=== PATIENT | male | born 1950 | race Caucasian/White ===

== ENCOUNTER 2024-11-16 10:55 | Inpatient (IN) | payer MEDICARE, SELFPAY ==
[2024-11-16] VITALS (16 sets, daily range): BP systolic 151–199; BP diastolic 64–79; PULSE 53–71; RESP 15–26; TEMP 35.8–36.4; O2SAT 94–99; BMI 21.9
--- NOTE | 2024-11-16 11:45 | DI.CT.S_ITS ---
PROCEDURE: CT CERVICAL SPINE WO CON INDICATIONS: c spine pain, multiple falls TECHNIQUE: Noncontrast 3 mm thick sections acquired from the skull base to the T4 level. Sagittal and coronal reformats were then constructed. For radiation dose reduction, the following was used: automated exposure control, adjustment of mA and/or kV according to patient size. COMPARISON: None. FINDINGS: Image quality: Excellent. Bones: No fractures or dislocations. Cervical spondylosis. Findings include severe bilateral bony foraminal narrowing at C3-C4 as well as bilateral foraminal narrowing at C7-T1 and T1-T2. There is multilevel facet arthropathy. There is a degree of canal stenosis at C3-C4. Visualized superior ribs are intact. Soft tissues: Prevertebral soft tissues are normal in thickness. No paravertebral hematomas. No apical pneumothoraces. IMPRESSION: No displaced fracture or traumatic subluxation. Cervical spondylosis Dictated by: Cristian Prakash M.D. on 11/16/2024 at 13:24 Approved by: Cristian Prakash M.D. on 11/16/2024 at 13:27
--- NOTE | 2024-11-16 11:45 | DI.CT.S_ITS ---
PROCEDURE: CT HEAD/BRAIN WO CON INDICATIONS: c spine pain, hit head, multiple falls TECHNIQUE: Noncontrast 4.5 mm thick angled axial sections acquired from the foramen magnum to the vertex, with coronal and sagittal reformats. For radiation dose reduction, the following was used: automated exposure control, adjustment of mA and/or kV according to patient size. COMPARISON: None. FINDINGS: Image quality: Diagnostic. CSF spaces: Basal cisterns are patent small left subdural hygroma without midline shift. No acute subdural hematoma. The ventricles are symmetric in size and shape. Brain: No intracranial bleeds or masses. There is cerebral volume loss for age, with resultant ventricular and sulcal prominence. There are periventricular and deep white matter chronic small vessel ischemic changes. Old bilateral basal ganglia lacunar infarctions. Moderate small vessel ischemic change. There is intracranial internal carotid artery atherosclerosis. Skull and face: Remote right temporal and parietal owen hole procedure. Remote extracranial circulation embolization on the right, possibly the middle meningeal artery. Calvarium and visualized facial bones appear intact, without suspicious lesions. Sinuses: Visualized sinuses and mastoids are clear. IMPRESSION: 1. No acute intracranial process. 2. Small left subdural hygroma. 3. Age-related volume loss, small vessel ischemic change, old bilateral lacunar infarcts. 4. Remote right-sided owen hole procedure and extracranial embolization, likely the middle meningeal artery distribution. Dictated by: Cristian Prakash M.D. on 11/16/2024 at 13:21 Approved by: Cristian Prakash M.D. on 11/16/2024 at 13:24
--- NOTE | 2024-11-16 11:46 | DI.RAD.S_ITS ---
PROCEDURE: XR CHEST 1V INDICATIONS: chest pain TECHNIQUE: One view of the chest was acquired. COMPARISON: None. FINDINGS: Surgical changes and devices: None. Lungs and pleura: Lungs are clear. No pleural effusions or pneumothorax. Mediastinum: Mediastinal contours appear normal. Heart size is normal. Bones and chest wall: No suspicious bony lesions. Overlying soft tissues appear unremarkable. IMPRESSION: No acute cardiopulmonary abnormality is seen. Dictated by: Cristian Prakash M.D. on 11/16/2024 at 13:14 Approved by: Cristian Prakash M.D. on 11/16/2024 at 13:15
--- NOTE | 2024-11-16 13:08 | DI.CT.S_ITS ---
PROCEDURE: CT FACIAL BONES WO CON INDICATIONS: fall TECHNIQUE: Noncontrast 2.5 mm thick axial images acquired from the mandible through the frontal sinuses, with coronal and sagittal reformatting. For radiation dose reduction, the following was used: automated exposure control, adjustment of mA and/or kV according to patient size. COMPARISON: None. FINDINGS: Image quality: Excellent. Bones and teeth: Orbital holly are intact. Sinus holyl show no fracture or deformity. Nasal bones and septum are intact. Visualized portions of the mandible demonstrate no fractures or subluxation. Zygomatic arches are intact. Pterygoid plates are intact. Visualized portions of the skull base and auditory canals are intact. Sinuses: Paranasal sinuses are aerated, without air-fluid levels. There is mild mucosal thickening of the right maxillary sinus and a left maxillary sinus mucous retention cyst. Mastoid air cells are aerated. Soft tissues: No edema, masses, or fluid collections. No enlarged lymph nodes. No soft tissue lacerations or debris. Vascular: Visualized vascular structures appear normal in the absence of contrast. Bony vascular foramina and canals are intact. IMPRESSION: No displaced facial bone fractures or mandibular fractures. Dictated by: Cristian Prakash M.D. on 11/16/2024 at 14:36 Approved by: Cristian Prakash M.D. on 11/16/2024 at 14:40
--- NOTE | 2024-11-16 13:08 | DI.CT.S_ITS ---
PROCEDURE: CT TRAUMA CHEST ABDOMEN PELVIS INDICATIONS: fell TECHNIQUE: After the administration of intravenous contrast, 5 mm thick sections acquired from the lung apices to the symphysis. 2.5 mm thick coronal and sagittal reformats were acquired. Additional 7 mm thick coronal maximum intensity projection (MIP) reformats acquired through the lungs. Optional 10-minute delayed imaging may be performed from the kidneys to the bladder. For radiation dose reduction, the following was used: automated exposure control, adjustment of mA and/or kV according to patient size. COMPARISON: None. FINDINGS: Image quality: Diagnostic. CHEST: Lower Neck: No enlarged lymph nodes. Thyroid: No thyroid nodules which require sonographic evaluation. Axillae: No enlarged lymph nodes. Chest Wall: No subcutaneous gas. Lungs and Pleura: No pulmonary contusions or lacerations. No acute airspace opacities. No pneumothorax or hemothorax. Mediastinum: No mediastinal hematomas. Heart size is normal. No pericardial effusion. Aneurysmal dilatation of the ascending aorta, measuring 4.4 cm at the level of the right main pulmonary artery. Classic three-vessel arch anatomy. Great vessel origins are widely patent. No mediastinal or hilar adenopathy. Esophagus is normal in caliber. No hiatal hernia. ABDOMEN: Liver: No lacerations. Gallbladder: No radiopaque gallstones or wall thickening. Biliary ducts: No biliary dilation. Pancreas: Homogenous enhancement. Spleen: Homogenous enhancement without laceration or hematoma. Adrenal Glands: Symmetric enhancement. Kidneys and Ureters: Small, shrunken right kidney. 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 Symmetric enhancement. No hydronephrosis. No solid mass. No complex renal cystic lesion which requires follow up. Stomach and Bowel: Normal colonic caliber, without significant wall thickening. Peritoneum: No abnormal intraperitoneal fluid. No free air. Ventral Wall: No hernia. Abdominal Nodes: No retroperitoneal or mesenteric adenopathy by size criteria. Vessels: Aorta and inferior vena cava are normal in size. Chronic focal dissection of the infrarenal abdominal aorta without aneurysm. High-grade origin stenosis of the right renal artery with resultant atrophy of the right kidney. PELVIS: Pelvic Organs: Unremarkable. Bladder: Normal thickness. Pelvic Nodes: No enlarged lymph nodes. Miscellaneous: No inguinal hernias are seen. Bones: Pelvic ring and hip joints appear intact. No displaced rib fractures. IMPRESSION: 1. No significant sequelae of acute trauma in the chest, abdomen, and pelvis. 2. Aneurysmal dilatation of the ascending aorta, measuring 4.4 cm. 3. Focal chronic infrarenal abdominal aortic dissection without aneurysm. 4. A high-grade origin stenosis of the right renal artery is noted, resulting in significant atrophy of involving the right kidney. Dictated by: Cristian Prakash M.D. on 11/16/2024 at 14:41 Approved by: Cristian Prakash M.D. on 11/16/2024 at 14:50
--- NOTE | 2024-11-16 13:24 | ED_ITS ---
HPI - Fall General Chief Complaint: Fall Stated Complaint: Fell down and has bruise on back Time Seen by Provider: 11/16/24 12:42 Source: patient Mode of arrival: Ambulatory History of Present Illness HPI Narrative: Patient brought here by partner for ground level falls. Patient is not on any blood thinners. and former [id number] at bedside. Patient has had long history of chronic back pain. He has good weeks and bad weeks where he will be able to walk and then other weeks he has not been able to walk. A week or 2 ago he had difficulty with walking but he was just started get better but then 2 days ago he fell against his walker and has bruising to the left flank. Has bruising to the left periorbital area. Also complains of right rib pain. Patient is awake alert oriented x4. Is not on any blood thinners. Has seen pain management past for his ongoing back pain. Has had physical therapy injections and MRIs. No loss of control of bowel or bladder. No saddle paresthesia. No numbness or tingling to the legs or feet. Did have a stroke many years ago. Has not been feeling well recently. Loss of appetite decreased eating and drinking. Related Data Home Medications Medication Instructions Recorded Confirmed amlodipine 10 mg tablet 10 mg PO DAILY 11/16/24 11/16/24 atorvastatin 40 mg tablet 40 mg PO DAILY 11/16/24 11/16/24 celecoxib 200 mg capsule 200 mg PO DAILY 11/16/24 11/16/24 dexamethasone 4 mg tablet 4 mg PO DAILY 11/16/24 11/16/24 lisinopril 10 mg tablet 10 mg PO DAILY 11/16/24 11/16/24 Allergies Allergy/AdvReac Type Severity Reaction Status Date / Time Tetanus Vaccines and Toxoid Allergy Anaphylaxis Verified 11/16/24 11:14 Review of Systems Review of Systems Narrative: GENERAL: Negative chills, fatigue, malaise, fever, sweats. HEENT: Negative sinus pain, ear pain, sore throat RESPIRATORY: Negative dyspnea, cough CARDIOVASCULAR: Negative chest pain, palpitations GASTROINTESTINAL: Negative nausea, vomiting, abdominal pain : Negative dysuria, frequency, hematuria MUSCULOSKELETAL: Positive back pain and muscle or bony pain SKIN: Negative rash, skin lesions NEUROLOGIC: Negative weakness, numbness ROS Unobtainable: All systems reviewed & are unremarkable except as noted in HPI and below Patient History Social History household members: spouse Smoking Status: Current every day smoker alcohol intake: current Smoking Status: Current every day smoker tobacco type: cigarettes Alcohol type: hard liquor Exam Narrative Exam Narrative: GENERAL: in no distress, not toxic not dyspneic HEAD: Normocephalic. There is left periorbital ecchymosis/black eye. EYES: Pupils equal round EOMI, PERRLA. No pain with eye movement. Denies any double vision ENT: Mucous membranes moist. NECK: Trachea midline. No midline tenderness or step-off of the cervical thoracic or lumbar spine. Patient log-rolled for exam. CARDIOVASCULAR: Regular rate and rhythm RESPIRATORY: Clear to auscultation. Breath sounds equal bilaterally. No wheezes, rales, or rhonchi. GASTROINTESTINAL: Abdomen soft, non-tender EXTREMITIES: No gross deformities. BACK: There is bilateral lower rib tenderness posteriorly and there is bruising to the lateral left lower ribs. No crepitus or flail. NEURO: AOx 3. Clear speech. Answering appropriately. Moving all 4 extremities. Fast exam is negative SKIN: Warm and dry PSYCH: Not anxious, is cooperative Initial Vital Signs Initial Vital Signs: Vital Signs Temperature 97.5 F L 11/16/24 11:14 Pulse Rate 71 11/16/24 11:14 Respiratory Rate 18 11/16/24 11:14 Blood Pressure 166/76 H 11/16/24 11:14 Pulse Oximetry 98 11/16/24 11:14 Oxygen Delivery Method Room Air 11/16/24 11:14 Scores NIH Stroke Scale Level of Conciousness: Alert, keenly responsive Ask month/age: Answers both questions correctly. Open/close eyes, close hand: Performs both tasks correctly Best gaze horizontal: Normal Visual ledezma: No visual loss Facial palsy: Normal symetrical movement Left arm drift: No drift for full 10 sec Right arm drift: No drift for full 10 sec Left leg drift: No drift for full 5 sec Right leg drift: No drift for full 5 sec Limb ataxia: Absent Sensory on face/arms/legs: Normal, no sensory loss Best language: No aphasia, normal Dysarthria: Normal Extinction or inattention: No abnormality Total NIH Stroke scale score: 0 Course Orders Ordered: Acetaminophen (Acetaminophen 325 Mg Tablet) 650 mg PO Q6H PRN PRN Reason: Fever/Mild Pain (1-3) Last Admin: 11/17/24 15:01 Dose: 650 mg Documented By: Admin: 11/17/24 09:13 Dose: 650 mg Documented By: Admin: 11/16/24 21:44 Dose: 650 mg Documented By: WB Aspirin (Aspirin Ec 81 Mg Tablet) 81 mg PO DAILY [facility] Last Admin: 11/18/24 08:58 Dose: 81 mg Documented By: Admin: 11/17/24 09:14 Dose: 81 mg Documented By: BT Atorvastatin Calcium (Atorvastatin 20 Mg Tablet) 80 mg PO BEDTIME [facility] Last Admin: 11/17/24 21:47 Dose: 80 mg Documented By: Admin: 11/16/24 21:44 Dose: 80 mg Documented By: WB Enoxaparin Sodium (Enoxaparin 40 Mg/0.4 Ml Syringe) 40 mg SUBCUT DAILY [facility] Last Admin: 11/18/24 08:58 Dose: 40 mg Documented By: Admin: 11/17/24 09:14 Dose: 40 mg Documented By: BT Guaifenesin/Codeine Phosphate (Codeine/Guaifenesin Liquid 5ml Udc) 10 ml PO Q6H PRN PRN Reason: Cough Last Admin: 11/18/24 06:04 Dose: 10 ml Documented By: Admin: 11/17/24 16:29 Dose: 10 ml Documented By: Admin: 11/17/24 10:17 Dose: 10 ml Documented By: Admin: 11/17/24 04:04 Dose: 10 ml Documented By: KAPIL Sodium Chloride (Normal Saline 0.9%) 1,000 mls @ 100 mls/hr IV CONT [facility] Last Admin: 11/18/24 04:44 Dose: 100 mls/hr Documented By: Infusion: 11/17/24 05:15 Dose: Infused Documented By: Admin: 11/16/24 19:15 Dose: 100 mls/hr Documented By: BT Naloxone HCl (Naloxone 0.4 Mg/Ml Vial) 0.2 mg IV Q2MIN PRN PRN Reason: Opiate Reversal Nicotine (Nicotine 21 Mg Patch) 21 mg TOP DAILY PRN PRN Reason: smoker Ondansetron HCl (Ondansetron 4 Mg/2 Ml Inj) 4 mg IV Q8HR PRN PRN Reason: Nausea And Vomiting Sodium Chloride (Sodium Chloride 0.9% Flush) 10 ml IV BID [facility] Last Admin: 11/18/24 08:58 Dose: 10 ml Documented By: Admin: 11/17/24 21:47 Dose: Not Given Documented By: Admin: 11/17/24 09:14 Dose: 10 ml Documented By: Admin: 11/16/24 22:00 Dose: Not Given Documented By: WB Discontinued Medications Benzonatate (Benzonatate 100 Mg Capsule) 100 mg PO NOW ONE Stop: 11/16/24 18:56 Last Admin: 11/16/24 19:17 Dose: 100 mg Documented By: BT Clopidogrel Bisulfate (Clopidogrel 75 Mg Tablet) 75 mg PO DAILY MARIELY Stop: 12/07/24 09:01 Last Admin: 11/17/24 13:50 Dose: Not Given Documented By: JOHNATHON Sodium Chloride (Normal Saline 0.9%) 500 mls @ 1,000 mls/hr IV BOLUS ONE Stop: 11/16/24 18:37 Last Infusion: 11/16/24 18:52 Dose: Infused Documented By: Admin: 11/16/24 18:20 Dose: 1,000 mls/hr Documented By: STEVIE Vital Signs Vital signs: Vital Signs - 8 hr 11/16/24 11:14 11/16/24 13:52 11/16/24 14:00 Temperature 97.5 F L Pulse Rate 71 53 L 53 L Respiratory Rate 18 26 H Blood Pressure 166/76 H Pulse Oximetry 98 98 98 Oxygen Delivery Method Room Air 11/16/24 14:12 11/16/24 14:12 11/16/24 14:30 Temperature Pulse Rate 65 60 Respiratory Rate 23 16 Blood Pressure 185/79 H Pulse Oximetry 98 99 Oxygen Delivery Method 11/16/24 14:30 11/16/24 15:00 11/16/24 15:00 Temperature Pulse Rate 60 Respiratory Rate 17 Blood Pressure 166/74 H 155/76 H Pulse Oximetry 98 Oxygen Delivery Method 11/16/24 15:09 11/16/24 15:09 11/16/24 15:30 Temperature Pulse Rate 55 L 59 L Respiratory Rate 23 16 Blood Pressure 199/79 H Pulse Oximetry 98 98 Oxygen Delivery Method 11/16/24 15:31 11/16/24 15:31 11/16/24 16:00 Temperature Pulse Rate 61 Respiratory Rate 19 Blood Pressure 155/69 H 165/74 H Pulse Oximetry 98 Oxygen Delivery Method 11/16/24 16:00 11/16/24 17:19 11/16/24 17:21 Temperature Pulse Rate 62 71 66 Respiratory Rate 21 15 Blood Pressure Pulse Oximetry 97 Oxygen Delivery Method 11/16/24 17:21 11/16/24 17:30 11/16/24 17:30 Temperature Pulse Rate 65 Respiratory Rate 18 Blood Pressure 157/70 H 151/64 H Pulse Oximetry Oxygen Delivery Method 11/16/24 18:00 11/16/24 18:00 Temperature Pulse Rate 60 Respiratory Rate 16 Blood Pressure 151/71 H Pulse Oximetry 95 Oxygen Delivery Method MDM - Fall Lab Data 11/18/24 04:46 11/18/24 04:46 Labs: Lab Results 11/16/24 Range/Units 13:15 WBC 9.9 (4.5-11.0) X10^3/uL RBC 4.82 (4.5-5.9) X10^6/uL Hgb 14.7 (13.5-17.5) g/dL Hct 42.3 (41-53) % MCV 87.7 (80-100) fL MCH 30.4 (26-34) PG MCHC 34.7 (30-36) % RDW 14.0 (11.6-14.8) % Plt Count 175 (150-400) X10^3/uL Neut % (Auto) 70.4 (50-75) % Lymph % (Auto) 20.9 L (25-40) % Levy % (Auto) 8.4 (3-14) % Eos % (Auto) 0.0 L (2-4) % Baso % (Auto) 0.3 (0-2) % Neut # (Auto) 7000 (8343-2747) /uL Lymph # (Auto) 2100 (8529-7851) /uL Levy # (Auto) 800 (0-900) /uL Eos # (Auto) 0 (0-450) /uL Baso # (Auto) 0 (0-100) /uL PT 11.6 (9.4-12.5) SECONDS INR 1.0 (0.9-1.3) APTT 27 (25.1-36.5) SECONDS Sodium 139 (137-145) mmol/L Potassium 4.0 (3.4-5.1) mmol/L Chloride 106 (98-107) mmol/L Carbon Dioxide 23 (22-32) mmol/L BUN 35 H (9-20) mg/dL Creatinine 1.61 H (0.66-1.25) mg/dL Estimated GFR 44 L (>60) mL/min BUN/Creatinine Ratio 21.7 (6-22) Glucose 77 L (80-110) mg/dL Lactate 1.2 (0.7-2.1) mmol/L Calcium 9.0 (8.4-10.2) mg/dL Magnesium 2.3 (1.6-2.3) mg/dL Total Bilirubin 1.3 (0.2-1.3) mg/dL AST 64 H (17-59) IU/L ALT 31 (<50) IU/L Alkaline Phosphatase 67 (38-126) U/L Total Creatine Kinase 716 H (55-170) U/L Troponin I 0.014 (0.01-0.034) ng/mL NT-Pro-B Natriuret Pep 746 H (<450) pg/mL Total Protein 7.5 (6.3-8.2) g/dL Albumin 4.4 (3.5-5.0) g/dL Globulin 3.1 (1.7-4.1) g/dL Albumin/Globulin Ratio 1.4 (1.0-2.8) Lipase 296 (23-300) U/L Ethyl Alcohol < 10 ( - 10) mg/dL Imaging Data MRI cervical spine: Radiologist's Impression: [address] [address] Magnetic Resonance Report Signed Patient: Travis Díaz MR#: [id number] : 1950 Acct:[id number] Age/Sex: 74 / M Date of Service: 11/16/24 Loc: ED Accession Number: [id number] Procedure: MR cervical spine wo con Ordering Provider: Travis Robertson MD PROCEDURE: MR CERVICAL SPINE WO CON INDICATIONS: Neck pain/ataxia TECHNIQUE: Noncontrast sagittal T1 spin echo and T2 fast spin echo, sagittal STIR, foraminal oblique sagittal T2 fast spin echo, and axial gradient echo or T2 fast spin echo through the cervical spine. COMPARISON: [facility], CT, CT CERVICAL SPINE WO CON, 11/16/2024, 12:24. FINDINGS: Image quality: Diagnostic Alignment and Curvature: Trace retrolisthesis of C3 on C4 probably degenerative. Bone Marrow: No acute fracture related edema. Scattered Modic changes are present. Spinal Cord: No suspicious cord contusion or other signal abnormality Paraspinous Soft Tissues: No pathologic prevertebral soft tissue swelling. No paravertebral mass or fluid collection. C2-C3: Small posterior disc bulge. Mild uncovertebral and facet arthropathy. No stenosis. C3-C4: Posterior disc osteophyte complex and protrusion. Uncovertebral and facet arthropathy. Moderate to severe central narrowing. Moderate right and moderate to severe left neural foraminal narrowing. Ligamentum hypertrophy. C4-C5: There is uncovering of the disc. Posterior disc osteophyte complex. Ligamentum hypertrophy. There is cach-di-druouhup central narrowing. Rmtu-oc-kqpcknjk bilateral neural foraminal narrowing. C5-C6: Posterior disc osteophyte complex. No significant central narrowing. Uncovertebral and facet arthropathy. Mild left neural foraminal narrowing. C6-C7: Small posterior disc osteophyte complex. Uncovertebral and facet arthropathy. Qpuc-be-iujzeipb right and mild left neural foraminal narrowing. C7-T1: Small disc bulge. Mild facet arthropathy. Mild bilateral neural foraminal narrowing. IMPRESSION: Spondylotic changes as described above, with stenosis seen at C3- C4. Milder degenerative areas of thecal sac and neural foraminal narrowing elsewhere. No acute fracture. No suspicious focal edematous cord signal. Dictated by: Jerry Ramires M.D. on 11/16/2024 at 17:07 Approved by: Jerry Ramires M.D. on 11/16/2024 at 17:12 MRI brain: Radiologist's Impression: [address] [address] Magnetic Resonance Report Signed Patient: Travis Díaz MR#: [id number] : 1950 Acct:[id number] Age/Sex: 74 / M Date of Service: 11/16/24 Loc: ED Accession Number: [id number] Procedure: MR head/brain wo con Ordering Provider: Travis Robertson MD PROCEDURE: MR HEAD/BRAIN WO CON INDICATIONS: Ataxia TECHNIQUE: Noncontrast axial T1 spin echo, axial T2 fast spin echo, sagittal and axial FLAIR, coronal T2 fast spin echo, axial gradient echo, axial diffusion and ADC through the brain. COMPARISON: [facility], CT, CT HEAD/BRAIN WO CON, 11/16/2024, 12:24. FINDINGS: Image quality: Diagnostic CSF spaces: Basal cisterns are patent. Lateral ventricles are symmetric. Volume: Vascular calcifications. Periventricular white matter disease is commonly seen with chronic microangiopathy. Volume loss is present. These findings are moderate Brain: Possible postsurgical changes along the right convexity with susceptibility. There are also small subdural hygromas, slightly greater on the left. Scattered areas of susceptibility also outlining the ventricles, cerebral convexities, and basal ganglia possibly mineralization or evidence of prior hemorrhage. Probable prominent perivascular spaces around the basal ganglia and internal capsule. Small infarcts are seen in the right occipital lobe. Craniofacial structures: Unremarkable partially visualized. Small mucous cyst on the right maxillary IMPRESSION: Small acute infarcts are seen in the right occipital lobe. Scattered areas of susceptibility artifact likely remote hemorrhages, including outlining the ventricles. Right convexity probable postsurgical changes also seen. Bilateral subdural hygromas without herniation. Dictated by: Jerry Ramires M.D. on 11/16/2024 at 17:13 Approved by: Jerry Ramires M.D. on 11/16/2024 at 17:16 CT face: Radiologist's Impression: [place] [address] CT Scan Report Signed Patient: Travis Díaz MR#: [id number] : 1950 Acct:[id number] Age/Sex: 74 / M Date of Service: 11/16/24 Loc: ED Accession Number: [id number] Procedure: CT facial bones wo con Ordering Provider: Travis Robertson MD PROCEDURE: CT FACIAL BONES WO CON INDICATIONS: fall TECHNIQUE: Noncontrast 2.5 mm thick axial images acquired from the mandible through the frontal sinuses, with coronal and sagittal reformatting. For radiation dose reduction, the following was used: automated exposure control, adjustment of mA and/or kV according to patient size. COMPARISON: None. FINDINGS: Image quality: Excellent. Bones and teeth: Orbital holly are intact. Sinus holly show no fracture or deformity. Nasal bones and septum are intact. Visualized portions of the mandible demonstrate no fractures or subluxation. Zygomatic arches are intact. Pterygoid plates are intact. Visualized portions of the skull base and auditory canals are intact. Sinuses: Paranasal sinuses are aerated, without air-fluid levels. There is mild mucosal thickening of the right maxillary sinus and a left maxillary sinus mucous retention cyst. Mastoid air cells are aerated. Soft tissues: No edema, masses, or fluid collections. No enlarged lymph nodes. No soft tissue lacerations or debris. Vascular: Visualized vascular structures appear normal in the absence of contrast. Bony vascular foramina and canals are intact. IMPRESSION: No displaced facial bone fractures or mandibular fractures. Dictated by: Cristian Prakash M.D. on 11/16/2024 at 14:36 Approved by: Cristian Prakash M.D. on 11/16/2024 at 14:40 CT scan - head: Radiologist's Impression: [place] [address] CT Scan Report Signed Patient: Travis Díaz MR#: [id number] : 1950 Acct:[id number] Age/Sex: 74 / M Date of Service: 11/16/24 Loc: ED Accession Number: [id number] Procedure: CT head/brain wo con Ordering Provider: Travis Robertson MD PROCEDURE: CT HEAD/BRAIN WO CON INDICATIONS: c spine pain, hit head, multiple falls TECHNIQUE: Noncontrast 4.5 mm thick angled axial sections acquired from the foramen magnum to the vertex, with coronal and sagittal reformats. For radiation dose reduction, the following was used: automated exposure control, adjustment of mA and/or kV according to patient size. COMPARISON: None. FINDINGS: Image quality: Diagnostic. CSF spaces: Basal cisterns are patent small left subdural hygroma without midline shift. No acute subdural hematoma. The ventricles are symmetric in size and shape. Brain: No intracranial bleeds or masses. There is cerebral volume loss for age, with resultant ventricular and sulcal prominence. There are periventricular and deep white matter chronic small vessel ischemic changes. Old bilateral basal ganglia lacunar infarctions. Moderate small vessel ischemic change. There is intracranial internal carotid artery atherosclerosis. Skull and face: Remote right temporal and parietal owen hole procedure. Remote extracranial circulation embolization on the right, possibly the middle meningeal artery. Calvarium and visualized facial bones appear intact, without suspicious lesions. Sinuses: Visualized sinuses and mastoids are clear. IMPRESSION: 1. No acute intracranial process. 2. Small left subdural hygroma. 3. Age-related volume loss, small vessel ischemic change, old bilateral lacunar infarcts. 4. Remote right-sided owen hole procedure and extracranial embolization, likely the middle meningeal artery distribution. Dictated by: Cristian Prakash M.D. on 11/16/2024 at 13:21 Approved by: Cristian Prakash M.D. on 11/16/2024 at 13:24 CT - cervical spine: Radiologist's Impression: [address] [address] [address] Scan Report Signed Patient: Travis Díaz MR#: [id number] : 1950 Acct:[id number] Age/Sex: 74 / M Date of Service: 11/16/24 Loc: ED Accession Number: [id number] Procedure: CT cervical spine wo con Ordering Provider: Travis Robertson MD PROCEDURE: CT CERVICAL SPINE WO CON INDICATIONS: c spine pain, multiple falls TECHNIQUE: Noncontrast 3 mm thick sections acquired from the skull base to the T4 level. Sagittal and coronal reformats were then constructed. For radiation dose reduction, the following was used: automated exposure control, adjustment of mA and/or kV according to patient size. COMPARISON: None. FINDINGS: Image quality: Excellent. Bones: No fractures or dislocations. Cervical spondylosis. Findings include severe bilateral bony foraminal narrowing at C3-C4 as well as bilateral foraminal narrowing at C7-T1 and T1-T2. There is multilevel facet arthropathy. There is a degree of canal stenosis at C3-C4. Visualized superior ribs are intact. Soft tissues: Prevertebral soft tissues are normal in thickness. No paravertebral hematomas. No apical pneumothoraces. IMPRESSION: No displaced fracture or traumatic subluxation. Cervical spondylosis Dictated by: Cristian Prakash M.D. on 11/16/2024 at 13:24 Approved by: Cristian Prakash M.D. on 11/16/2024 at 13:27 CT chest abdomen and pelvis: Radiologist's Impression: [address] [address] [address] Scan Report Signed Patient: Travis Díaz MR#: [id number] : 1950 Acct:[id number] Age/Sex: 74 / M Date of Service: 11/16/24 Loc: ED Accession Number: [id number] Procedure: CT Trauma Chest Abdomen Pelvis Ordering Provider: Travis Robertson MD PROCEDURE: CT TRAUMA CHEST ABDOMEN PELVIS INDICATIONS: fell TECHNIQUE: After the administration of intravenous contrast, 5 mm thick sections acquired from the lung apices to the symphysis. 2.5 mm thick coronal and sagittal reformats were acquired. Additional 7 mm thick coronal maximum intensity projection (MIP) reformats acquired through the lungs. Optional 10-minute delayed imaging may be performed from the kidneys to the bladder. For radiation dose reduction, the following was used: automated exposure control, adjustment of mA and/or kV according to patient size. COMPARISON: None. FINDINGS: Image quality: Diagnostic. CHEST: Lower Neck: No enlarged lymph nodes. Thyroid: No thyroid nodules which require sonographic evaluation. Axillae: No enlarged lymph nodes. Chest Wall: No subcutaneous gas. Lungs and Pleura: No pulmonary contusions or lacerations. No acute airspace opacities. No pneumothorax or hemothorax. Mediastinum: No mediastinal hematomas. Heart size is normal. No pericardial effusion. Aneurysmal dilatation of the ascending aorta, measuring 4.4 cm at the level of the right main pulmonary artery. Classic three-vessel arch anatomy. Great vessel origins are widely patent. No mediastinal or hilar adenopathy. Esophagus is normal in caliber. No hiatal hernia. ABDOMEN: Liver: No lacerations. Gallbladder: No radiopaque gallstones or wall thickening. Biliary ducts: No biliary dilation. Pancreas: Homogenous enhancement. Spleen: Homogenous enhancement without laceration or hematoma. Adrenal Glands: Symmetric enhancement. Kidneys and Ureters: Small, shrunken right kidney. 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 Symmetric enhancement. No hydronephrosis. No solid mass. No complex renal cystic lesion which requires follow up. Stomach and Bowel: Normal colonic caliber, without significant wall thickening. Peritoneum: No abnormal intraperitoneal fluid. No free air. Ventral Wall: No hernia. Abdominal Nodes: No retroperitoneal or mesenteric adenopathy by size criteria. Vessels: Aorta and inferior vena cava are normal in size. Chronic focal dissection of the infrarenal abdominal aorta without aneurysm. High-grade origin stenosis of the right renal artery with resultant atrophy of the right kidney. PELVIS: Pelvic Organs: Unremarkable. Bladder: Normal thickness. Pelvic Nodes: No enlarged lymph nodes. Miscellaneous: No inguinal hernias are seen. Bones: Pelvic ring and hip joints appear intact. No displaced rib fractures. IMPRESSION: 1. No significant sequelae of acute trauma in the chest, abdomen, and pelvis. 2. Aneurysmal dilatation of the ascending aorta, measuring 4.4 cm. 3. Focal chronic infrarenal abdominal aortic dissection without aneurysm. 4. A high-grade origin stenosis of the right renal artery is noted, resulting in significant atrophy of involving the right kidney. Dictated by: Cristian Prakash M.D. on 11/16/2024 at 14:41 Approved by: Cristian Prakash M.D. on 11/16/2024 at 14:50 Chest x-ray: Radiologist's Impression: [address] [address] XRay Report Signed Patient: Travis Díaz MR#: [id number] : 1950 Acct:[id number] Age/Sex: 74 / M Date of Service: 11/16/24 Loc: ED Accession Number: [id number] Procedure: XR chest 1V Ordering Provider: Travis Robertson MD PROCEDURE: XR CHEST 1V INDICATIONS: chest pain TECHNIQUE: One view of the chest was acquired. COMPARISON: None. FINDINGS: Surgical changes and devices: None. Lungs and pleura: Lungs are clear. No pleural effusions or pneumothorax. Mediastinum: Mediastinal contours appear normal. Heart size is normal. Bones and chest wall: No suspicious bony lesions. Overlying soft tissues appear unremarkable. IMPRESSION: No acute cardiopulmonary abnormality is seen. Dictated by: Cristian Prakash M.D. on 11/16/2024 at 13:14 Approved by: Cristian Prakash M.D. on 11/16/2024 at 13:15 [facility] Narrative Medical decision making narrative: Patient brought here by partner for ground level falls. Patient is not on any blood thinners. and former [id number]-jv-ipr at bedside. Patient has had long history of chronic back pain. He has good weeks and bad weeks where he will be able to walk and then other weeks he has not been able to walk. A week or 2 ago he had difficulty with walking but he was just started get better but then 2 days ago he fell against his walker and has bruising to the left flank. Has bruising to the left periorbital area. Also complains of right rib pain. Patient is awake alert oriented x4. Is not on any blood thinners. Has seen pain management past for his ongoing back pain. Has had physical therapy injections and MRIs. No loss of control of bowel or bladder. No saddle paresthesia. No numbness or tingling to the legs or feet. Did have a stroke many years ago. Has not been feeling well recently. Loss of appetite decreased eating and drinking. After history and exam CT head cervical spine face chest abdomen pelvis, CBC CMP urinalysis drug screen alcohol MDM Medical records reviewed: No recent visit for this complaint Differential considered: Includes but not limited to degenerative disc disease chronic back pain cauda equina rib fracture facial fracture intracranial bleed, stroke Lab Test results independently reviewed as above. Pertinent findings: WBC 9.9 hemoglobin 14.7 INR 1.0 sodium 139 potassium 4.0 BUN 35 creatinine 1.61 GFR 44 troponin 0.014 glucose 77 BNP 746 alcohol negative Imaging studies independently reviewed: CT head face cervical spine chest abdomen pelvis no acute finding MRI brain acute infarcts noted. MRI cervical spine no acute finding, chest x-ray no acute finding Consultations: 3:40 p.m.. Spoke with [facility] neurosurgery, Dr. Spivey, he actually did surgery on patient in February 2023 for subdural hematoma. He recommends patient have MRI brain and cervical spine. Not lumbar spine for today's symptoms. The hygroma as incidental finding and not contributory to patient's symptoms 6:21 p.m.. Spoke with hospitalist Dr. Lopes, who will admit inpatient. He will decide on antiplatelet medications. Treatments: Normal saline Re-evaluations: 6:06 p.m.. Updated patient and results. MRI does show acute stroke likely causing his ataxia and falling down. Discussion: Appropriate for admission, patient will need balance workup and physical therapy evaluation and echocardiogram. No neurology consult indicated this time. Patient outside window for intervention. Unknown exact last time well known. No CT angiogram indicated at this time. Again, known time of onset likely greater than 24 hours. Diagnosis: Acute stroke EKG normal sinus rhythm normal EKG rate 62 Discharge Plan Departure Patient Disposition: Admitted As Inpatient Clinical Impression: Acute CVA (cerebrovascular accident) Admit Date/Time: 11/16/24 18:24 Admit Provider: Byron Lopes
[2024-11-16 13:41] LABS: Add Manual Diff / Slide Review NO; Basophils Absolute Auto 0 /uL (0-100); Basophils Percent Auto 0.3 % (0-2); Eosinophils Absolute Auto 0 /uL (0-450); Hematocrit 42.3 % (41-53); Hemoglobin 14.7 g/dL (13.5-17.5); Lymphocytes Absolute Auto 2100 /uL (1100-4500); Lymphocytes Percent Auto 20.9 % (25-40); Mean Corpuscular HGB Conc 34.7 % (30-36); Mean Corpuscular Hemoglobin 30.4 PG (26-34); Mean Corpuscular Volume 87.7 fL (80-100); Monocytes Absolute Auto 800 /uL (0-900); Monocytes Percent Auto 8.4 % (3-14); Neutrophils Absolute Auto 7000 /uL (1500-7000); Neutrophils Percent Auto 70.4 % (50-75); Platelet Count 175 X10^3/uL (150-400); Red Blood Cell Count 4.82 X10^6/uL (4.5-5.9); White Blood Cell Count 9.9 X10^3/uL (4.5-11.0)
[2024-11-16 13:48] LABS: Prothrombin Time 11.6 SECONDS (9.4-12.5)
--- NOTE | 2024-11-16 13:50 | PC.NURSE ---
c-collare removed per Dr Robertson
[2024-11-16 13:51] LABS: PTT Partial Thromboplastin Tim 27 SECONDS (25.1-36.5)
[2024-11-16 13:54] LABS: Alanine Aminotransferase 31 IU/L (<50); Albumin 4.4 g/dL (3.5-5.0); Albumin Globulin Ratio 1.4 (1.0-2.8); Alkaline Phosphatase 67 U/L (38-126); Aspartate Aminotransferase 64 IU/L (17-59); BUN Creatinine Ratio 21.7 (6-22); Bilirubin Total 1.3 mg/dL (0.2-1.3); Blood Urea Nitrogen 35 mg/dL (9-20); Carbon Dioxide 23 mmol/L (22-32); Chloride 106 mmol/L (98-107); Creatine Kinase 716 U/L (55-170); Estimated Glomerular Filt Rate 44 mL/min (>60); Ethanol (ETOH) < 10 mg/dL; Globulin 3.1 g/dL (1.7-4.1); Glucose 77 mg/dL (80-110); Lipase 296 U/L (23-300); Magnesium 2.3 mg/dL (1.6-2.3); Sodium 139 mmol/L (137-145); Total Protein 7.5 g/dL (6.3-8.2)
[2024-11-16 13:55] LABS: HEMOLYSIS 67 (0-50); Lactate (Lactic Acid) 1.2 mmol/L (0.7-2.1)
[2024-11-16 14:06] LABS: NT-proBNP (BNP-Adult 18+) 746 pg/mL (<450); Troponin I 0.014 ng/mL (0.01-0.034)
--- NOTE | 2024-11-16 15:37 | DI.MRI.S_ITS ---
PROCEDURE: MR CERVICAL SPINE WO CON INDICATIONS: Neck pain/ataxia TECHNIQUE: Noncontrast sagittal T1 spin echo and T2 fast spin echo, sagittal STIR, foraminal oblique sagittal T2 fast spin echo, and axial gradient echo or T2 fast spin echo through the cervical spine. COMPARISON: [facility], CT, CT CERVICAL SPINE WO CON, 11/16/2024, 12:24. FINDINGS: Image quality: Diagnostic Alignment and Curvature: Trace retrolisthesis of C3 on C4 probably degenerative. Bone Marrow: No acute fracture related edema. Scattered Modic changes are present. Spinal Cord: No suspicious cord contusion or other signal abnormality Paraspinous Soft Tissues: No pathologic prevertebral soft tissue swelling. No paravertebral mass or fluid collection. C2-C3: Small posterior disc bulge. Mild uncovertebral and facet arthropathy. No stenosis. C3-C4: Posterior disc osteophyte complex and protrusion. Uncovertebral and facet arthropathy. Moderate to severe central narrowing. Moderate right and moderate to severe left neural foraminal narrowing. Ligamentum hypertrophy. C4-C5: There is uncovering of the disc. Posterior disc osteophyte complex. Ligamentum hypertrophy. There is ajuz-[id number] central narrowing. Qaxp-bz-wfpgcops bilateral neural foraminal narrowing. C5-C6: Posterior disc osteophyte complex. No significant central narrowing. Uncovertebral and facet arthropathy. Mild left neural foraminal narrowing. C6-C7: Small posterior disc osteophyte complex. Uncovertebral and facet arthropathy. Orem-nj-nhhutfkm right and mild left neural foraminal narrowing. C7-T1: Small disc bulge. Mild facet arthropathy. Mild bilateral neural foraminal narrowing. IMPRESSION: Spondylotic changes as described above, with stenosis seen at C3-C4. Milder degenerative areas of thecal sac and neural foraminal narrowing elsewhere. No acute fracture. No suspicious focal edematous cord signal. Dictated by: Jerry Ramires M.D. on 11/16/2024 at 17:07 Approved by: Jerry Ramires M.D. on 11/16/2024 at 17:12
--- NOTE | 2024-11-16 15:37 | DI.MRI.S_ITS ---
PROCEDURE: MR HEAD/BRAIN WO CON INDICATIONS: Ataxia TECHNIQUE: Noncontrast axial T1 spin echo, axial T2 fast spin echo, sagittal and axial FLAIR, coronal T2 fast spin echo, axial gradient echo, axial diffusion and ADC through the brain. COMPARISON: [facility], CT, CT HEAD/BRAIN WO CON, 11/16/2024, 12:24. FINDINGS: Image quality: Diagnostic CSF spaces: Basal cisterns are patent. Lateral ventricles are symmetric. Volume: Vascular calcifications. Periventricular white matter disease is commonly seen with chronic microangiopathy. Volume loss is present. These findings are moderate Brain: Possible postsurgical changes along the right convexity with susceptibility. There are also small subdural hygromas, slightly greater on the left. Scattered areas of susceptibility also outlining the ventricles, cerebral convexities, and basal ganglia possibly mineralization or evidence of prior hemorrhage. Probable prominent perivascular spaces around the basal ganglia and internal capsule. Small infarcts are seen in the right occipital lobe. Craniofacial structures: Unremarkable partially visualized. Small mucous cyst on the right maxillary IMPRESSION: Small acute infarcts are seen in the right occipital lobe. Scattered areas of susceptibility artifact likely remote hemorrhages, including outlining the ventricles. Right convexity probable postsurgical changes also seen. Bilateral subdural hygromas without herniation. Dictated by: Jerry Ramires M.D. on 11/16/2024 at 17:13 Approved by: Jerry Ramires M.D. on 11/16/2024 at 17:16
--- NOTE | 2024-11-16 18:16 | EKG_ITS ---
[address] [address] Test Date: 2024-11-16 Pat Name: Travis Díaz Department: Room: Gender: Male Crabber: KOBE : 1950 Requested By: Order Number: [id number] Reading MD: Dhaval Dumont MD Measurements Intervals [place] Rate: 62 P: 67 PA: 208 QRS: 32 QRSD: 82 T: 63 QT: 396 QTc: 401 Interpretive Statements Normal sinus rhythm Electronically Signed On 11-17-2024 6:56:39 PST by Dhaval Dumont MD
[2024-11-16] MEDS: SODIUM CHLORIDE 0.9% 500 ML 1000 ML IV (18:20)
[2024-11-16 18:45] LABS: UR Morphine/Opiate cutoff 300 Negative (Negative); Ur Creatinine Normal (Normal); Ur Specific Gravity Normal (Normal); Urine Amphetamines Negative (Negative); Urine Barbiturates Negative (Negative); Urine Benzodiazepines Negative (Negative); Urine Cocaine Negative (Negative); Urine MDMA Negative (Negative); Urine Methadone Negative (Negative); Urine Methamphetamines Negative (Negative); Urine Oxycodone Negative (Negative); Urine Phencyclidine Negative (Negative); Urine Tetrahydrocannabinol Positive (Negative); Urine Tricyclic Antidepressant Negative (Negative); Urine pH Normal (Normal)
--- NOTE | 2024-11-16 18:52 | DI.ECHO.S_ITS ---
[facility]+ [facility] : : [address] [place] : : [id number] : : Phone: [phone] Echocardiogram Report + + :Name: PATRICIA RODRIGUEZ Study Date: 11/17/2024 Height: 67 in : :Hospital ReadingLocation: Weight: 140 lb : : Gender: Male BSA: 1.7 m2 : :: 1950 Age: 74 yrs BP: 147/75 mmHg: :Reason For Study: CVA : :Ordering Physician: MARLY, : :SOURAV ALCANTAR Performed By: Renetta Palma : :Referring: SOURAV LUKE : + + Interpretation Summary The left ventricle is normal in size and wall thickness. The ejection fraction is estimated to be 60-65%. Left ventricular wall motion is normal. Diastolic parameters suggest probable normal left ventricular diastolic function and normal filling pressures. The right ventricle is normal in size and function. The right ventricular systolic pressure is estimated to be at least 30 mmHg based on an estimated right atrial pressure of 3 mm Hg. The left atrial size is normal. There is no Doppler evidence for an interatrial shunt. There is mild aortic regurgitation. There is no other significant valvular heart disease. The aortic root is normal size. No obvious source for cardioemoblic CVA. Procedure: A two-dimensional transthoracic echocardiogram with color flow and Doppler was performed. The study quality was technically adequate. There is no prior echocardiogram noted for this patient. The patient was in sinus bradycardia with heart rates between 50-55 bpm during the exam. Left Ventricle: The left ventricle is normal in size and wall thickness. The ejection fraction is estimated to be 60-65%. Left ventricular wall motion is normal. Diastolic parameters suggest probable normal left ventricular diastolic function and normal filling pressures. Right Ventricle: The right ventricle is normal in size and function. Atria: The left atrial size is normal. Right atrial size is normal. There is no Doppler evidence for an interatrial shunt. Mitral Valve: The mitral valve leaflets appear to open well. There is trace mitral regurgitation. Aortic Valve: The aortic valve is trileaflet. The aortic valve opens well. There is no aortic valve stenosis. There is mild aortic regurgitation. Tricuspid Valve: The tricuspid valve leaflets are thin and pliable. There is mild tricuspid regurgitation. The right ventricular systolic pressure is estimated to be at least 30 mmHg based on an estimated right atrial pressure of 3 mm Hg. Pulmonic Valve: The pulmonic valve is not well visualized. There is no pulmonic valvular regurgitation. There is no other significant valvular heart disease. Great Vessels: The aortic root is normal size. The ascending aorta could not be visualized. The IVC is of normal diameter and collapses greater than 50% with a sniff. This suggests a low right atrial pressure of 3 mm Hg. Pericardium/ Pleura There is no pericardial effusion. There is no pleural effusion. MMode/2D Measurements & Calculations LVIDd: 3.9 cm LVOT diam: 2.0 cm LVIDs: 2.6 cm Ao root diam: 3.8 cm FS: 33.4 % Ao Arch Diam (Prox Trans): 2.9 cm IVSd: 0.87 cm LVPWd: 0.73 cm LV ortiz. diameter/BSA (cm/m^2): 2.3 LV sys. diameter/BSA (cm/m^2): 1.5 LA A2 area: 17.5 cm2 RA long axis: 4.8 cm LA A4 area: 12.6 cm2 RA area: 14.7 cm2 LA length (vol): 4.5 cm RA vol: 37.9 ml LA vol: 41.5 ml RA : 21.8 ml/m2 LA vol index: 23.9 ml/m2 IVC diam: 2.0 cm RVD1 (basal): 3.5 cm RVD2 (mid): 2.8 cm Doppler Measurements & Calculations Ao V2 max: 133.5 cm/sec LVOT Max Titus: 97.0 cm/sec Ao V2 mean: 88.1 cm/sec LV V1 max P.8 mmHg Ao max P.1 mmHg LV V1 VTI: 20.6 cm Ao mean P.5 mmHg JHONNY(I,D): 2.5 cm2 Ao V2 VTI: 27.2 cm JHONNY(V,D): 2.4 cm2 sev ratio: 0.76 JHONNY indexed to BSA (cm^2/m^2): 1.4 MV E max titus: 86.3 cm/sec TR max titus: 257.9 cm/sec MV A max titus: 76.2 cm/sec TR max P.6 mmHg MV E/A: 1.1 PA pr(Accel): 32.8 mmHg Med Peak E' Titus: 7.8 cm/sec E/E' med: 11.0 Lat Peak E' Titus: 8.2 cm/sec E/E' lat: 10.6 E/e' average: 10.8 MV dec time: 0.24 sec SV(LVOT): 66.8 ml Reading Physician:03:55 PM
[2024-11-16] MEDS: SODIUM CHLORIDE 0.9% 1,000 ML 100 ML IV (19:15)
[2024-11-16] MEDS: BENZONATATE 100 MG CAPSULE PO (19:17)
--- NOTE | 2024-11-16 19:33 | P.HP_ITS ---
History of Present Illness History of Present Illness Date Patient Seen: 11/16/24 Chief complaint: FELL DOWN AND HAS BRUSE ON BACK. Narrative: 74 y/o with PMH of hemorrhagic stroke, HLD, chronic LBP with impaired balance and gait, smoking, who sustained GLF 2 days ago bruising left flank and left periorbital area. who came with complaining on above. ED workup with NIH stroke scale of 0. MRI showing acute, ischemic, right occipital infarcts. He is borderline hypertensive. Elevated CK and BMP. Cr 1.6. Baseline unknown Pending lipids, A1C, echocardiogram. Telemetry monitoring while in the ED - sinus rhythm. Had ASA, high-intensity statin and IVFs. Placed in observation [facility] Social History Smoking Status: Current every day smoker Meds Home Medications and Allergies Home Medications Medication Instructions Recorded Confirmed Type amlodipine 10 mg tablet 10 mg PO DAILY 11/16/24 11/16/24 History atorvastatin 40 mg tablet 40 mg PO DAILY 11/16/24 11/16/24 History celecoxib 200 mg capsule 200 mg PO DAILY 11/16/24 11/16/24 History dexamethasone 4 mg tablet 4 mg PO DAILY 11/16/24 11/16/24 History lisinopril 10 mg tablet 10 mg PO DAILY 11/16/24 11/16/24 History Allergies Allergy/AdvReac Type Severity Reaction Status Date / Time Tetanus Vaccines and Toxoid Allergy Anaphylaxis Verified 11/16/24 11:14 Review of Systems Constitutional Comments: w/o fever or chills Cardiovascular Comments: w/o palpitations Respiratory Comments: w/o shortness of breath Gastrointestinal Comments: w/o abdominal complaints Genitourinary Comments: w/o dysuria Musculoskeletal Comments: chronic LBP, walks with a walker, recurrent falls Neurologic Comments: w/o blurred vision, visual field deficits, focal weakness and numbness denies headache chronic loss of balance Exam Vital Signs (past 8 hours): - 11/16/24 13:52 11/16/24 14:00 11/16/24 14:12 Pulse Rate 53 L 53 L 65 Respiratory Rate 26 H 23 Blood Pressure Pulse Oximetry 98 98 98 11/16/24 14:12 11/16/24 14:30 11/16/24 14:30 Pulse Rate 60 Respiratory Rate 16 Blood Pressure 185/79 H 166/74 H Pulse Oximetry 99 11/16/24 15:00 11/16/24 15:00 11/16/24 15:09 Pulse Rate 60 55 L Respiratory Rate 17 23 Blood Pressure 155/76 H Pulse Oximetry 98 98 11/16/24 15:09 11/16/24 15:30 11/16/24 15:31 Pulse Rate 59 L 61 Respiratory Rate 16 19 Blood Pressure 199/79 H Pulse Oximetry 98 98 11/16/24 15:31 11/16/24 16:00 11/16/24 16:00 Pulse Rate 62 Respiratory Rate Blood Pressure 155/69 H 165/74 H Pulse Oximetry 97 11/16/24 17:19 11/16/24 17:21 11/16/24 17:21 Pulse Rate 71 66 Respiratory Rate 21 15 Blood Pressure 157/70 H Pulse Oximetry 11/16/24 17:30 11/16/24 17:30 11/16/24 18:00 Pulse Rate 65 60 Respiratory Rate 18 16 Blood Pressure 151/64 H Pulse Oximetry 95 11/16/24 18:00 Pulse Rate Respiratory Rate Blood Pressure 151/71 H Pulse Oximetry Oxygen Delivery Method Room Air Const Other: in no distress HENMT Other: traumatic Eyes Other: left periorbital hematoma pupils equal, reactive EOMI Neck Other: supple Resp Other: CTA Cardio Other: RRR Skin Other: periorbital hematoma Neuro Other: impaired balance chronically - not tested mildly positive Lt pronator drift Extrem Other: w/o swelling Psych Other: memory deficits, mood appropriate Objective ECG Impression: NSR w/o arrhythmic / ischemic chanegs Labs 11/16/24 13:15 11/16/24 13:15 Labs: Laboratory Results - last 24 hr 11/16/24 11/16/24 13:15 18:34 WBC 9.9 RBC 4.82 Hgb 14.7 Hct 42.3 MCV 87.7 MCH 30.4 MCHC 34.7 RDW 14.0 Plt Count 175 Neut % (Auto) 70.4 Lymph % (Auto) 20.9 L Yell % (Auto) 8.4 Eos % (Auto) 0.0 L Baso % (Auto) 0.3 Neut # (Auto) 7000 Lymph # (Auto) 2100 Yell # (Auto) 800 Eos # (Auto) 0 Baso # (Auto) 0 PT 11.6 INR 1.0 APTT 27 Sodium 139 Potassium 4.0 Chloride 106 Carbon Dioxide 23 BUN 35 H Creatinine 1.61 H Estimated GFR 44 L BUN/Creatinine Ratio 21.7 Glucose 77 L Lactate 1.2 Calcium 9.0 Magnesium 2.3 Total Bilirubin 1.3 AST 64 H ALT 31 Alkaline Phosphatase 67 Total Creatine Kinase 716 H Troponin I 0.014 NT-Pro-B Natriuret Pep 746 H Total Protein 7.5 Albumin 4.4 Globulin 3.1 Albumin/Globulin Ratio 1.4 Lipase 296 U Opiates 300ng/mL cut Negative Ur Oxycodone Screen Negative Urine Methadone Screen Negative Ur Barbiturates Screen Negative U Tricyclic Antidepress Negative Ur Phencyclidine Scrn Negative Ur Amphetamines Screen Negative U Methamphetamines Scrn Negative Ur MDMA Scrn (Ecstasy) Negative U Benzodiazepines Scrn Negative Urine Cocaine Screen Negative U Marijuana (THC) Screen Positive H Urine pH Normal Urine Specific [place] Normal Ethyl Alcohol < 10 Ur Creatinine Normal Assessment & Plan Assessment and plan (1) 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: Status: Acute (2) HLD (hyperlipidemia): Status: Acute (3) HTN (hypertension): Status: Acute (4) History of stroke: Status: Acute (5) Chronic bilateral low back pain: Status: Acute (6) Impaired mobility: Status: Acute Assessment & Plan narrative: 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 ischemic Rt 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 CVA - ischemic or embolic - telemetry, echo and labs pending, ASA, statin, permissive HTN - PT, OT assessment - Hx of hemorrhagic stroke 3 years ago, seen in [facility] and transferred to [place] - record not available on admission HLD - he was on 40 mg of Lipitor daily - panel pending - high-intensity statin HTN - at home on Lisinopril 10 mg daily and Norvasc 10 mg daily - did not take meds last week, according to - both held - permissive HTN today and tomorrow - IVFs LBP - chronic - CS MRI revealed stenosis at C3-4 level DVT prophylaxis - Lovenox Time-Based Coding :: [TOTAL MINUTES] spent with patient and on the chart (including review of chart, obtaining history, exam, reviewing outside data, placing orders, documenting exam and treatment plan, and counseling patient) on [DATE].
[2024-11-16] MEDS: ACETAMINOPHEN 325 MG TABLET 650 MG PO (21:44)
[2024-11-16] MEDS: ATORVASTATIN 20 MG TABLET 80 MG PO (21:44)
[2024-11-16 21:50] LABS: MRSA (Nasal) PCR NOT DETECTED (Not Detect)
[2024-11-17 02:00] VITALS: BP 122/62; PULSE 59; RESP 18; TEMP 36.6; O2SAT 93
[2024-11-17] MEDS: CODEINE/GUAIFENESIN LIQUID 5ML UDC 10 ML PO ×3 (04:04→16:29)
[2024-11-17 04:36] VITALS: BP 147/75; PULSE 60; RESP 18; TEMP 36.1; O2SAT 96
[2024-11-17 06:01] LABS: Add Manual Diff / Slide Review NO; Basophils Absolute Auto 0 /uL (0-100); Basophils Percent Auto 0.2 % (0-2); Eosinophils Absolute Auto 0 /uL (0-450); Eosinophils Percent Auto 0.1 % (2-4); Hematocrit 33.7 % (41-53); Hemoglobin 12.1 g/dL (13.5-17.5); Lymphocytes Absolute Auto 2500 /uL (1100-4500); Lymphocytes Percent Auto 35.2 % (25-40); Mean Corpuscular HGB Conc 35.9 % (30-36); Mean Corpuscular Hemoglobin 31.3 PG (26-34); Mean Corpuscular Volume 87.2 fL (80-100); Monocytes Absolute Auto 700 /uL (0-900); Monocytes Percent Auto 9.3 % (3-14); Neutrophils Absolute Auto 3900 /uL (1500-7000); Neutrophils Percent Auto 55.2 % (50-75); Platelet Count 147 X10^3/uL (150-400); Red Blood Cell Count 3.86 X10^6/uL (4.5-5.9); White Blood Cell Count 7.1 X10^3/uL (4.5-11.0)
[2024-11-17 06:11] LABS: Hemoglobin A1C% w Est Avg Glu 5.3 % (4.0-6.0)
[2024-11-17 06:14] LABS: Creatine Kinase 411 U/L (55-170)
[2024-11-17 06:19] LABS: Alanine Aminotransferase 23 IU/L (<50); Albumin 3.2 g/dL (3.5-5.0); Albumin Globulin Ratio 1.3 (1.0-2.8); Alkaline Phosphatase 56 U/L (38-126); Aspartate Aminotransferase 46 IU/L (17-59); BUN Creatinine Ratio 19.4 (6-22); Blood Urea Nitrogen 28 mg/dL (9-20); Calcium 8.3 mg/dL (8.4-10.2); Carbon Dioxide 26 mmol/L (22-32); Chloride 110 mmol/L (98-107); Cholesterol 187 mg/dL (140-199); Estimated Glomerular Filt Rate 50 mL/min (>60); Globulin 2.4 g/dL (1.7-4.1); Glucose 90 mg/dL (80-110); HDL Cholesterol 24 mg/dL (40-60); HEMOLYSIS < 15 (0-50); LDL Cholesterol Calculated 102 mg/dL (<100); Potassium 3.4 mmol/L (3.4-5.1); Sodium 139 mmol/L (137-145); Total Protein 5.6 g/dL (6.3-8.2); Triglycerides 306 mg/dL (35-150)
[2024-11-17 07:05] LABS: TSH w/ Reflex to FT4 2.73 uIU/mL (0.47-4.68)
[2024-11-17 08:00] VITALS: BP 150/71; PULSE 61; RESP 18; TEMP 36; O2SAT 94
[2024-11-17] MEDS: ACETAMINOPHEN 325 MG TABLET 650 MG PO ×2 (09:13→15:01)
[2024-11-17] MEDS: ASPIRIN EC 81 MG TABLET PO (09:14)
[2024-11-17] MEDS: SODIUM CHLORIDE 0.9% FLUSH 10 ML IV (09:14)
[2024-11-17] MEDS: ENOXAPARIN 40 MG/0.4 ML SYRINGE SUBCUT (09:14)
--- NOTE | 2024-11-17 10:57 | DIET.CONS ---
Dietary Consultation Note Admission Date: 11/16/2024 18:24 Assessment: 74 y M admitted for stroke, PMH of stroke [address] consulted for recent loss of appetite/decrease in PO intakes. Met with pt at bedside. Pt reports lack of appetite for 2 days. Normal appetite with regular meals before these last 2 days. Denies recent weight loss and reports weight has been stable at 140 lb (63.5 kg). Pt on general diet. Trial of energy-kcal supplement for lunch r/t lack of appetite. Encouraged intakes as tolerated, discussed options available. Ht: 170.18 cm Wt: 63.5 kg BMI: 21.9 UBW: 63.5 kg Last BM: 11/16/24 (11/16/24 18:43) MNA: 11 Ace Score: 19 Diet: 11/16/24 Dinner General (Regular) Diet Diet Modifications: Labs: RBC 3.86 X10^6/uL (4.5-5.9) L 11/17/24 05:20 Hgb 12.1 g/dL (13.5-17.5) L 11/17/24 05:20 Hct 33.7 % (41-53) L 11/17/24 05:20 Creatinine 1.44 mg/dL (0.66-1.25) H 11/17/24 05:20 Hemoglobin A1c 5.3 % (4.0-6.0) 11/17/24 05:20 Lactate 1.2 mmol/L (0.7-2.1) 11/16/24 13:15 NT-Pro-B Natriuret Pep 746 pg/mL (<450) H 11/16/24 13:15 Nutrition Diagnosis: Inadequate oral intake r/t lack of appetite aeb pt reports little PO intake over last 2 days, estimated <50% EER Interventions: 1. ONS/energy-kcal supplement trial EER: 1900 kcals (30 kcals/kg per BMI/CVA) 75-85 g protein (1.2-1.3 g/kg per CVA) Monitoring/Evaluations: PO intakes, ONS tolerance Electronically Signed by: Mary Jane Marie 11/17/24 10:57 Clinical Dietitian [address] [address]
--- NOTE | 2024-11-17 11:38 | PT-IP ANOTE ---
PT consult received. PT checked in on pt who is getting testing in room currently. Con't PT efforts.
--- NOTE | 2024-11-17 13:19 | CM.DANOTE ---
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 Hx stroke. PCP: BRAN Miles Payer: [employer] Reviewed chart, therapy notes have not been entered yet. Discussed patient with bedside RN who explained patient is not A+Ox4, processing and comprehension seem effected. Placed call to the contact on chart; Marlon Singleton P [phone], SO, introduced self and role. Patient and Marlon live together in [place], Marlon is patient's primary caregiver. Marlon and patient have been together for 11yrs. Marlon works M-F during the day, she is home at 4pm and home during the weekends. Marlon's son comes to check on patient most mornings. According to Marlon, patient has been needing addtl assist getting up and down and is slightly confused at baseline. SNF hx unknown, no hx of HH. Patient's son Amaury Díaz P [phone] lives in [place] and is coming up to visit on Thursday. Asked Marlon if she has any DPOA ppk and she thought they might have completed this at some point (?) and would look after work. Marlon agreeable to SNF if recommended but with no SNF preference at this time. Therapy evals pending. CM team will plan to follow clinical course closely. TOMMY Fatima Discharge Planning/Care Management CM Discharge Assessment Start: 11/17/24 13:14 Freq: Status: Active Protocol: Document 11/17/24 13:14 SNOW (Rec: 11/17/24 13:19 SNOW [id number]) Discharge Planning Assessment Assigned Packaging Operator TOMMY Lopez DPOA/Assigned Designee Name Marlon BakellekamiTRENTON Contact Information [phone] Advance Directives? No History Provided By Significant Other,Medical Record Prior Living Arrangements House Household Members spouse Comment PLOF unknown at this time Independent with ADL's No: Prior CVA, hx falls,has good weeks and bad weeks Is patient alert and oriented? No: Not currently, baseline cognition (?)
--- NOTE | 2024-11-17 13:20 | PT-IP ANOTE ---
PT checks on pt twice more. On final attempt, pt resting in bed and c/o not feeling well, cold and pain. PT obtains warm blankets for pt and he refuses when PT asks if she should get nsg about pain. Pt declines mobility/OOB with PT today. Con't eval efforts next date.
--- NOTE | 2024-11-17 13:38 | PM.PN.1 ---
Subjective Subjective Interval history: 74 M admitted with multiple falls after MRI showed an acute infarct in the R occipital lobe. Patient denies complaints, other than falling a lot recently. His history is inconsistent. Exam Vital Signs (past 8 hours): - 11/17/24 08:00 11/17/24 09:10 Temperature 96.8 F L Pulse Rate 61 Respiratory Rate 18 Blood Pressure 150/71 H Pulse Oximetry 94 Oxygen Delivery Method Room Air Oxygen Flow Rate 0 Oxygen Delivery Method Room Air Oxygen Flow Rate 0 Const Other: in no distress HENMT Other: traumatic appearance with L eye bruising Eyes Other: left periorbital hematoma pupils equal, reactive EOMI Neck Other: supple Resp Other: CTA Cardio Other: RRR Skin Other: periorbital hematoma, stable Neuro Other: impaired balance chronically - not tested mildly positive Lt pronator drift Extrem Other: w/o swelling Psych Other: memory deficits, mood appropriate Objective Labs 11/17/24 05:20 11/17/24 05:20 Labs: Laboratory Results - last 24 hr 11/16/24 11/16/24 11/16/24 13:15 18:34 20:10 WBC 9.9 RBC 4.82 Hgb 14.7 Hct 42.3 MCV 87.7 MCH 30.4 MCHC 34.7 RDW 14.0 Plt Count 175 Neut % (Auto) 70.4 Lymph % (Auto) 20.9 L [place] % (Auto) 8.4 Eos % (Auto) 0.0 L Baso % (Auto) 0.3 Neut # (Auto) 7000 Lymph # (Auto) 2100 [place] # (Auto) 800 Eos # (Auto) 0 Baso # (Auto) 0 PT 11.6 INR 1.0 APTT 27 Sodium 139 Potassium 4.0 Chloride 106 Carbon Dioxide 23 BUN 35 H Creatinine 1.61 H Estimated GFR 44 L BUN/Creatinine Ratio 21.7 Glucose 77 L Hemoglobin A1c Lactate 1.2 Calcium 9.0 Magnesium 2.3 Total Bilirubin 1.3 AST 64 H ALT 31 Alkaline Phosphatase 67 Total Creatine Kinase 716 H Troponin I 0.014 NT-Pro-B Natriuret Pep 746 H Total Protein 7.5 Albumin 4.4 Globulin 3.1 Albumin/Globulin Ratio 1.4 Triglycerides Cholesterol LDL Cholesterol, Calc HDL Cholesterol Lipase 296 TSH Nasal Screen MRSA (PCR) Not detected U Opiates 300ng/mL cut Negative Ur Oxycodone Screen Negative Urine Methadone Screen Negative Ur Barbiturates Screen Negative U Tricyclic Antidepress Negative Ur Phencyclidine Scrn Negative Ur Amphetamines Screen Negative U Methamphetamines Scrn Negative Ur MDMA Scrn (Ecstasy) Negative U Benzodiazepines Scrn Negative Urine Cocaine Screen Negative U Marijuana (THC) Screen Positive H Urine pH Normal Urine Specific [place] Normal Ethyl Alcohol < 10 Ur Creatinine Normal 11/17/24 05:20 WBC 7.1 RBC 3.86 L Hgb 12.1 L Hct 33.7 L MCV 87.2 MCH 31.3 MCHC 35.9 RDW 14.0 Plt Count 147 L Neut % (Auto) 55.2 Lymph % (Auto) 35.2 [place] % (Auto) 9.3 Eos % (Auto) 0.1 L Baso % (Auto) 0.2 Neut # (Auto) 3900 Lymph # (Auto) 2500 [place] # (Auto) 700 Eos # (Auto) 0 Baso # (Auto) 0 PT INR APTT Sodium 139 Potassium 3.4 Chloride 110 H Carbon Dioxide 26 BUN 28 H Creatinine 1.44 H Estimated GFR 50 L BUN/Creatinine Ratio 19.4 Glucose 90 Hemoglobin A1c 5.3 Lactate Calcium 8.3 L Magnesium 2.0 Total Bilirubin 1.0 AST 46 ALT 23 Alkaline Phosphatase 56 Total Creatine Kinase 411 H D Troponin I NT-Pro-B Natriuret Pep Total Protein 5.6 L Albumin 3.2 L Globulin 2.4 Albumin/Globulin Ratio 1.3 Triglycerides 306 H Cholesterol 187 LDL Cholesterol, Calc 102 H HDL Cholesterol 24 L Lipase TSH 2.73 Nasal Screen MRSA (PCR) U Opiates 300ng/mL cut Ur Oxycodone Screen Urine Methadone Screen Ur Barbiturates Screen U Tricyclic Antidepress Ur Phencyclidine Scrn Ur Amphetamines Screen U Methamphetamines Scrn Ur MDMA Scrn (Ecstasy) U Benzodiazepines Scrn Urine Cocaine Screen U Marijuana (THC) Screen Urine pH Urine Specific [place] Ethyl Alcohol Ur Creatinine PFSH Social History household members: spouse Smoking Status: Current every day smoker alcohol intake: current Assessment & Plan Assessment & Plan narrative: Acute ischemic Rt CANDY PULLER CVA - ischemic or embolic possible, though no known afib and NSR EKG on presentation. No events on telemetry thus far. - telemetry, echo and labs pending, ASA, statin. Given hx of ICH, will not initiate plavix in addition to aspirin. - PT, OT assessment - Hx of hemorrhagic stroke 3 years ago, seen in [facility] and transferred to [facility]. Had R owen hole and MMA embolization. HLD - he was on 40 mg of Lipitor daily, increased to 80. - TG 306, TC 187, LDL 102, HDL 24. - TSH 2.73. HTN - at home on Lisinopril 10 mg daily and Norvasc 10 mg daily - did not take meds last week, according to - both held but will resume. LBP - chronic - CS MRI revealed stenosis at C3-4 level - UDS positive for marijuana Rhabdomyolysis - mild CK elevation >500 on admit, improving today at 411. Continue IV fluids today. Code: Full, surrogate is patient's spouse DVT: Lovenox daily I have utilized all available immediate resources to obtain, update, or review the patient's current medications. Dispo: patient admitted under inpatient status. Unclear if will be able to discharge home or possible SNF vs acute rehab, will have PT/OT evaluations. Additional history obtained via discussions with the ER provider yesterday, along with overnight hospitalist, behavioral health case manager today.. These discussions contributed to the creation of the above assessment and plan. I have reviewed patient's presenting documentation, labs, and imaging personally. Time-Based Coding :: [TOTAL MINUTES] spent with patient and on the chart (including review of chart, obtaining history, exam, reviewing outside data, placing orders, documenting exam and treatment plan, and counseling patient) on [DATE].
[2024-11-17 15:01] VITALS: BP 157/77; PULSE 63; RESP 22; TEMP 36; O2SAT 98
[2024-11-17 20:00] VITALS: BP 144/75; PULSE 76; RESP 18; TEMP 35.9; O2SAT 94
[2024-11-17] MEDS: ATORVASTATIN 20 MG TABLET 80 MG PO (21:47)
[2024-11-18 00:50] VITALS: BP 143/76; PULSE 71; RESP 22; TEMP 36.3; O2SAT 94
[2024-11-18 04:15] VITALS: BP 145/83; PULSE 63; RESP 18; TEMP 36.1; O2SAT 95
[2024-11-18] MEDS: SODIUM CHLORIDE 0.9% 1,000 ML 100 ML IV (04:44)
[2024-11-18 05:15] LABS: Add Manual Diff / Slide Review NO; Basophils Absolute Auto 0 /uL (0-100); Basophils Percent Auto 0.4 % (0-2); Eosinophils Absolute Auto 0 /uL (0-450); Eosinophils Percent Auto 0.4 % (2-4); Hematocrit 33.7 % (41-53); Hemoglobin 12.1 g/dL (13.5-17.5); Lymphocytes Absolute Auto 2000 /uL (1100-4500); Mean Corpuscular HGB Conc 35.8 % (30-36); Mean Corpuscular Hemoglobin 31.3 PG (26-34); Mean Corpuscular Volume 87.4 fL (80-100); Monocytes Absolute Auto 800 /uL (0-900); Monocytes Percent Auto 10.1 % (3-14); Neutrophils Absolute Auto 4900 /uL (1500-7000); Neutrophils Percent Auto 63.1 % (50-75); Platelet Count 177 X10^3/uL (150-400); Red Blood Cell Count 3.86 X10^6/uL (4.5-5.9); Red Cell Distribution Width 13.9 % (11.6-14.8); White Blood Cell Count 7.8 X10^3/uL (4.5-11.0)
[2024-11-18 05:38] LABS: Alanine Aminotransferase 19 IU/L (<50); Albumin 3.1 g/dL (3.5-5.0); Albumin Globulin Ratio 1.3 (1.0-2.8); Alkaline Phosphatase 62 U/L (38-126); Aspartate Aminotransferase 37 IU/L (17-59); BUN Creatinine Ratio 13.5 (6-22); Bilirubin Total 0.7 mg/dL (0.2-1.3); Blood Urea Nitrogen 18 mg/dL (9-20); Calcium 7.7 mg/dL (8.4-10.2); Carbon Dioxide 24 mmol/L (22-32); Chloride 111 mmol/L (98-107); Estimated Glomerular Filt Rate 55 mL/min (>60); Globulin 2.4 g/dL (1.7-4.1); Glucose 118 mg/dL (80-110); HEMOLYSIS < 15 (0-50); Magnesium 1.7 mg/dL (1.6-2.3); Potassium 3.7 mmol/L (3.4-5.1); Sodium 137 mmol/L (137-145); Total Protein 5.5 g/dL (6.3-8.2)
[2024-11-18] MEDS: CODEINE/GUAIFENESIN LIQUID 5ML UDC 10 ML PO ×2 (06:04→21:12)
--- NOTE | 2024-11-18 07:35 | P.PN_ITS ---
Subjective Subjective Interval history: Summary: 74 M admitted with multiple falls after MRI showed an acute infarct in the R occipital lobe. Patient denies complaints, other than falling a lot recently. His history is inconsistent. S: The patient states his whole body hurts. He denies any weakness of arms or legs. He says it at sucks today because of pain. His nurse was not getting the same reports. The patient denies headache or visual problems today. Exam Vital Signs (past 8 hours): - 11/18/24 00:50 11/18/24 04:15 Temperature 97.3 F L 96.9 F L Pulse Rate 71 63 Respiratory Rate 22 18 Blood Pressure 143/76 H 145/83 H Pulse Oximetry 94 95 Oxygen Flow Rate 0 0 Oxygen Delivery Method Room Air Oxygen Flow Rate 0 Narrative Exam Narrative: NAD, alert and oriented. Fluent speech. Lungs are clear, normal rate and effort. Heart is regular, no murmur gallop or rub. Abdomen is soft, non distended. Extremities are free of edema. Normal straight leg raise bilaterally, can lift arms in the air bilaterally. He was conjugate gaze and no facial droop. Objective ECG Impression: Normal sinus rhythm Imaging Multiple studies:: Radiologist's impression: Echo: The left ventricle is normal in size and wall thickness. The ejection fraction is estimated to be 60-65%. Left ventricular wall motion is normal. Diastolic parameters suggest probable normal left ventricular diastolic function and normal filling pressures. The right ventricle is normal in size and function. The right ventricular systolic pressure is estimated to be at least 30 mmHg based on an estimated right atrial pressure of 3 mm Hg. The left atrial size is normal. There is no Doppler evidence for an interatrial shunt. There is mild aortic regurgitation. There is no other significant valvular heart disease. The aortic root is normal size. No obvious source for cardioemoblic CVA. Cervical spine MRI: Spondylotic changes as described above, with stenosis seen at C3-C4. Milder degenerative areas of thecal sac and neural foraminal narrowing elsewhere. No acute fracture. No suspicious focal edematous cord signal. Brain MRI: Small acute infarcts are seen in the right occipital lobe. Scattered areas of susceptibility artifact likely remote hemorrhages, including outlining the ventricles. Right convexity probable postsurgical changes also seen. Bilateral subdural hygromas without herniation. Face CT: No displaced facial bone fractures or mandibular fractures. Chest, abdomen, pelvis CT: 1. No significant sequelae of acute trauma in the chest, abdomen, and pelvis. 2. Aneurysmal dilatation of the ascending aorta, measuring 4.4 cm. 3. Focal chronic infrarenal abdominal aortic dissection without aneurysm. 4. A high-grade origin stenosis of the right renal artery is noted, resulting in significant atrophy of involving the right kidney. Chest x-ray: No acute cardiopulmonary abnormality is seen. Head CT: 1. No acute intracranial process. 2. Small left subdural hygroma. 3. Age-related volume loss, small vessel ischemic change, old bilateral lacunar infarcts. 4. Remote right-sided owen hole procedure and extracranial embolization, likely the middle meningeal artery distribution. Cervical spine CT: No displaced fracture or traumatic subluxation. Cervical spondylosis Labs 11/18/24 04:46 11/18/24 04:46 Labs: Laboratory Results - last 24 hr 11/18/24 04:46 WBC 7.8 RBC 3.86 L Hgb 12.1 L Hct 33.7 L MCV 87.4 MCH 31.3 MCHC 35.8 RDW 13.9 Plt Count 177 Neut % (Auto) 63.1 Lymph % (Auto) 26.0 [place] % (Auto) 10.1 Eos % (Auto) 0.4 L Baso % (Auto) 0.4 Neut # (Auto) 4900 Lymph # (Auto) 2000 [place] # (Auto) 800 Eos # (Auto) 0 Baso # (Auto) 0 Sodium 137 Potassium 3.7 Chloride 111 H Carbon Dioxide 24 BUN 18 Creatinine 1.33 H Estimated GFR 55 L BUN/Creatinine Ratio 13.5 Glucose 118 H Calcium 7.7 L Magnesium 1.7 Total Bilirubin 0.7 AST 37 ALT 19 Alkaline Phosphatase 62 Total Protein 5.5 L Albumin 3.1 L Globulin 2.4 Albumin/Globulin Ratio 1.3 [facility] Social History household members: spouse Smoking Status: Current every day smoker alcohol intake: current Assessment & Plan Assessment & Plan narrative: Acute ischemic Rt [employer] CVA, present on admission and active. - ischemic or embolic possible, though no known afib and NSR EKG on presentation. No events on telemetry thus far. - telemetry, echo and labs pending, ASA, statin. Given hx of ICH, will not initiate plavix in addition to aspirin. - PT, OT assessment - Hx of hemorrhagic stroke 3 years ago, seen in [facility] and transferred to [facility]. Had R owen hole and MMA embolization. -he seems to have a degree of neglect versus chronic cognitive changes. HLD, stable - he was on 40 mg of Lipitor daily, increased to 80. - TG 306, TC 187, LDL 102, HDL 24. - TSH 2.73. HTN, stable - at home on Lisinopril 10 mg daily and Norvasc 10 mg daily - did not take meds last week, according to - both held but will resume. LBP, stable - chronic - CS MRI revealed stenosis at C3-4 level - UDS positive for marijuana Rhabdomyolysis, present on admission and resolved. - mild CK elevation >500 on admit, improving today at 411. Continue IV fluids today. Plan: -continue current medical therapy, with monotherapy with aspirin and statin. -continue PT, OT, and speech evaluation. -he will likely need a fpc facility for ongoing rehabilitation. Code: Full, surrogate is patient's spouse DVT: Lovenox daily PRECIOUS: 11/20- I have utilized all available immediate resources to obtain, update, or review the patient's current medications. Dispo: patient admitted under inpatient status. Unclear if will be able to discharge home or possible SNF vs acute rehab, will have PT/OT evaluations. Time-Based Coding :: [TOTAL MINUTES] spent with patient and on the chart (including review of chart, obtaining history, exam, reviewing outside data, placing orders, documenting exam and treatment plan, and counseling patient) on [DATE].
[2024-11-18 08:00] VITALS: BP 165/87; PULSE 82; RESP 20; TEMP 36.3; O2SAT 94
[2024-11-18] MEDS: ENOXAPARIN 40 MG/0.4 ML SYRINGE SUBCUT (08:58)
[2024-11-18] MEDS: ASPIRIN EC 81 MG TABLET PO (08:58)
[2024-11-18] MEDS: SODIUM CHLORIDE 0.9% FLUSH 10 ML IV ×2 (08:58→21:06)
--- NOTE | 2024-11-18 10:35 | PT.IIE ---
Current Diagnoses Hyperlipidemia, unspecified (11/16/24) Other chronic pain (11/16/24) Essential (primary) hypertension (11/16/24) Cerebral infarction due to unspecified occlusion or stenosis of right posterior cerebral artery (11/16/24) Low back pain, unspecified (11/16/24) Other reduced mobility (11/16/24) Personal history of transient ischemic attack (TIA), and cerebral infarction without residual deficits (11/16/24) Physical Therapy Inpatient Evaluation/Re-Eval M1 PT/OT-IP Prior Functional Status Start: 11/17/24 08:11 Freq: NEEDED Status: Active Protocol: Document 11/18/24 11:42 [facility] (Rec: 11/18/24 12:04 [facility] [id number]) Medical Review Prior Functional Status Communication I per pt and did not have word finding or thinking issues per pt. Mobility and Gait Pt states used a SPC or FWW as needed. Activities of Daily Living and IADL's Pt reports did his ADL's and shared IADl needs. Social History Household Members spouse Living Arrangements Apartment/Condo Number of Stairs To Enter/Railing? Pt states uses an elevator to get to his condo, otherwise no steps in his condo. Home Environment Standard Height Toilet,Tub/ Shower Home Equipment Front Wheel Walker,Straight Cane,Hand Held Shower,Grab Bars Near Toilet,Grab Bars In Shower Additional Social History Comment Pt's Life Partner assist him as needed after work and on the weekends. Per chart his son checks on him in the mornings. M2 PT-IP Current Condition Start: 11/17/24 08:11 Freq: NEEDED Status: Active Protocol: Document 11/18/24 10:35 AB (Rec: 11/18/24 12:23 AB [id number]) Physical Therapy Current Condition Current Condition Evaluation Date 11/18/24 Treatment Diagnosis CVA; difficulty in walking Onset Date 11/16/24 M3 PT-IP Subjective Start: 11/17/24 08:11 Freq: NEEDED Status: Active Protocol: Document 11/18/24 10:35 AB (Rec: 11/18/24 12:23 AB [id number]) Subjective Physical Therapy Visit Type Type Initial Evaluation Visit Start Time 10:35 Visit Stop Time 11:05 Number of MILK INSPECTOR Visits 0 Physical Therapy Visit Comments Patient Comments agreeable to do PT Therapy Pain Assessment Location Back Scale Used pain scale not stated Pain Behaviors Calling Out,[place] Pain Management Techniques Distraction,Modification of Treatment,Re-positioning, Timing of Activity with Medications M4 PT-IP Mobility and Gait Start: 11/17/24 08:11 Freq: NEEDED Status: Active Protocol: Document 11/18/24 10:35 AB (Rec: 11/18/24 12:23 AB [id number]) PT-Bed Mobility Assessment Supine to Sit Supine to Sit Standby Assistance PT-Transfer Assessment Sit to and From Stand Sit to and from Stand Standby Assistance,Contact Guard Assistance,Minimal Assistance,1 Person Assistance ,2 Person Assistance Equipment Transfer Assistive Device Gait Belt,Front Wheeled Walker Orthotic/Prosthetic Devices or Brace: No Transfers Transfer Destination Chair Transfer Technique ambulated Transfer Ability Level of Assist Standby Assistance,1 Person Assistance,Use of Upper Extremities Comments Mobility Comments Pt supine in bed and agreeable to do PT. obtained PLOF and home set up. pt has word finding difficutlies and needing increase time to respond to questions. pt can get easily irritated/agitated. BP: 140/82 completed supine to sit SBA. able to sit on EOB SBA. c/o back pain and initially refusing use of safety belt but agreed to use but not to tigthen. completed sit to stand CGA to min A with posterior LOB with initial standing needing to sit down. pt told PT not to touch his back due to pain. pt got agitated due to PT needing to hold on to pt due to LOB. informed pt that PT has to hold on to him if he is unsteady and if he loses his balance. completed sit to stand again SBA and pt ambulated to the chair using FWW ~ 20 ft SBA to CGA. pt sat on the chair. pt rested and agreed to ambulate again. Assessed ambulation without AD and completed ~ 20 ft SBA to CGA. presents with unsteady shuffling gait. pt sat back on the chair. positioned pt on the chair. call light and table placed within reach. Gait Assessment Gait Gait Assistance Required: Standby Assistance Distance (Feet) 25 Able to Maintain Weight Bearing Status Yes During Gait Assistive Devices Assistive Device None,Gait Belt,Front Wheeled Walker Orthotic/Prosthetic Devices or Brace: No Gait Deviations General Gait Pattern Decreased Stride Length, Decreased Feet Clearance,Step- to Gait Factors Limiting Gait Function Factors Limiting Gait Function Decreased Activity Tolerance, Decreased Strength,Difficulty Following Directions,Limited Range of Motion,Pain,Poor Balance,Poor Safety Awareness PT-Balance Assessment Sitting Balance and Reactions Static Sitting Balance Ability Good Dynamic Sitting Balance Ability Good Standing Balance and Reactions Static Standing Balance Ability Fair Dynamic Standing Balance Ability Fair Device Used without AD M5 PT-IP Objective Assessments Start: 11/17/24 08:11 Freq: NEEDED Status: Active Protocol: Document 11/18/24 10:35 AB (Rec: 11/18/24 12:23 AB [id number]) Orientation Orientation/Cognition Level of Alertness Alert Orientation Name Language Function Ability Word Finding Difficulties,Hard of Hearing Safety Awareness Decreased Safety Awareness Memory Description Short Term Impaired,Nursing Home Impaired Gross Range of Motion Lower Extremity ROM Assessment Within Functional Limits Strength Lower Extremity Strength Assessment Within Functional Limits Coordination Assessment Gross Coordination Gross Coordination WNL Muscle Tone Muscle Tone WNL Yes M6 PT-IP Treatment Start: 11/17/24 08:11 Freq: NEEDED Status: Active Protocol: Document 11/18/24 10:35 AB (Rec: 11/18/24 12:23 AB [id number]) Physical Therapy Treatment Education Education Provided Safety M7 PT-IP Assessment and Plan Start: 11/17/24 08:11 Freq: NEEDED Status: Active Protocol: Document 11/18/24 10:35 AB (Rec: 11/18/24 12:23 AB [id number]) PT Summary Assessment and Plan Potential Rehabilitation Potential Fair Summary Impairments Pain,ROM,Strength,Balance, Coordination,Sensation,Tone, Cognition,Bed Mobility, Transfers,Gait,Activity Tolerance Assessment Summary pt is a 74 y/o M s/p fall and admitted for CVA. pt with R occipital lobe infarcts. pt requiring SBA to CGA with transfers and ambulation using FWW/ without AD. (+) LOB with initial standing. pt directs his own care. pt stated that his friend works in the morning but can assist him when his friend is at home. pt has decrease safety awareness and will need assistance at home. d/c plan depending on progress: home with assistance and HHPT vs SNF rehab. will continue to assess. Goals Bed Mobility Goal Independent Transfer Goal Independent Gait Goal Independent Gait Distance 300 Days to Meet Goals 10 Frequency of Treatment Frequency Of Treatment Once a Day Treatment Plan Physical Therapy Treatment Plan Bed Mobility Training,Transfer Training,Gait Training, Therapeutic Exercise,Balance Retraining,Discharge Planning, Hot or Cold Pack,Neuromuscular Re-ed,Coordination Retraining ,Manual Therapy Precautions Other Precautions falls Recommendations To Nursing Amount of Assist Needed 1 Person Assist Discharge Recommendations PT Discharge Recommendations Home with Assistance,Home Health,SNF Rehab,Home vs SNF Transportation Needs at Discharge Private Vehicle,Wheelchair/ Cabulance
--- NOTE | 2024-11-18 11:31 | OT.IP.EVAL ---
Current Diagnoses Hyperlipidemia, unspecified (11/16/24) Other chronic pain (11/16/24) Essential (primary) hypertension (11/16/24) Cerebral infarction due to unspecified occlusion or stenosis of right posterior cerebral artery (11/16/24) Low back pain, unspecified (11/16/24) Other reduced mobility (11/16/24) Personal history of transient ischemic attack (TIA), and cerebral infarction without residual deficits (11/16/24) Occupational Therapy Inpatient Evaluation/Re-Eval M1 PT/OT-IP Prior Functional Status Start: 11/17/24 08:11 Freq: NEEDED Status: Active Protocol: Document 11/18/24 11:42 [facility] (Rec: 11/18/24 12:04 [facility] [id number]) Medical Review Prior Functional Status Communication I per pt and did not have word finding or thinking issues per pt. Mobility and Gait Pt states used a SPC or FWW as needed. Activities of Daily Living and IADL's Pt reports did his ADL's and shared IADl needs. Social History Household Members spouse Living Arrangements Apartment/Condo Number of Stairs To Enter/Railing? Pt states uses an elevator to get to his condo, otherwise no steps in his condo. Home Environment Standard Height Toilet,Tub/ Shower Home Equipment Front Wheel Walker,Straight Cane,Hand Held Shower,Grab Bars Near Toilet,Grab Bars In Shower Additional Social History Comment Pt's Life Partner assist him as needed after work and on the weekends. Per chart his son checks on him in the mornings. M2 OT-IP Current Condition Start: 11/18/24 11:41 Freq: Status: Active Protocol: Document 11/18/24 11:42 [facility] (Rec: 11/18/24 12:04 [facility] [id number]) Occupational Therapy Current Condition Current Condition Evaluation Date 11/18/24 Treatment Diagnosis CVA Diagnosis Onset Date 11/16/24 M3 OT- IP Subjective and Pain Start: 11/18/24 11:41 Freq: Status: Active Protocol: Document 11/18/24 11:42 [facility] (Rec: 11/18/24 12:04 [facility] [id number]) OT- Subjective Occupational Therapy Visit Type Type Initial Evaluation Visit Start Time 09:00 Visit Stop Time 11:31 Notes Pt seen from [id number], [id number] Occupational Therapy Visit Comments Patient Comments Pt agreed to get up. Patient/Caregiver Goals Pt is insistent on going home. OT Pain Assessment Pain When Pain Assessed At Rest Pain Present Pain Present Pain Reported Location Back Intensity 8 Scale Used Numeric (0 - 10) M4 OT- IP ADL's Start: 11/18/24 11:41 Freq: Status: Active Protocol: Document 11/18/24 11:42 [facility] (Rec: 11/18/24 12:04 [facility] [id number]) OT [id number] Comments OT Self-Feeding Comments NOt at meal time. OT ADL-Grooming Comments OT Grooming Comments Did not perform. OT ADL-Oral Care Comments Oral Care Comments Did no perform. OT ADL-Dressing General Eval Lower Body Dressing Ability Maximum Assistance Areas Needing Assistance Socks Commentsand pain and not able to bend over to maribell his socks at this time. OT ADL-Toileting Comments OT Toileting Comments Pt has been using the urinal in bed. OT ADL-Bathing Comments OT Bathing Comments Pt would benefit form assist and a shower chair at this time. M5 OT- IP IADL's Start: 11/18/24 11:41 Freq: Status: Active Protocol: Document 11/18/24 11:42 [facility] (Rec: 11/18/24 12:04 [facility] [id number]) OT-Instrumental Activities of Daily Living Deficits IADL Deficits Identified Deficits Home Safety Awareness Awareness of Need for Assistance at Home Decreased Awareness Home Safety Comments Pt inisistent of his care and havign difficulty with word finding and comprehension at this time. Medication Management Medication Management Comments Pt will need assist. Money Management Money Management Comments Pt will need assist. Meal Preparation Meal Preparation Comments Pt will need assist. Manager Of International Manager Of International Comments Pt will need assist. Driving Driving Concerns Identified Regarding Safety Driving Comments Recommended pt not drive. M6 OT- IP Functional Cognition Start: 11/18/24 11:41 Freq: Status: Active Protocol: Document 11/18/24 11:42 [facility] (Rec: 11/18/24 12:04 [facility] [id number]) Cognitive Factors Limiting Selfcare Function Cognitive Ability Level of Alertness Alert,Confusional State Patient Orientation Name,Place Attention Span Ability Capable of Focused Attention, Unable to Focus Ability to Follow Commands Able to Follow One Step Commands with Increased Time, Able to Follow One Step Commands with Repetition Memory Description Short Term Impaired,Working Impaired Problem Solving Ability Needs Assist to Identify Solutions Cognitive Comments Cognitive Assessment Comments Pt havign difficulty to follow and comprehend directions. Pt easily distracted and needng concrete cues to follow in addition to visual and tactile cues. Pt is aware that he is not thinking well at this time and insists that he will be able to care for himself at home. OT- Vision and Hearing OT- Hearing Assessment OT- Hearing Assessment WFL OT- Vision Assessment Visual Acuity WFL Visual Attentiveness WFL Occular Pursuits WFL Visual [place] WFL Diplopia Absent M7 OT- IP Mobility and Balance Start: 11/18/24 11:41 Freq: Status: Active Protocol: Document 11/18/24 11:42 [facility] (Rec: 11/18/24 12:04 [facility] [id number]) OT- Bed Mobility Assessment Supine to Sit Supine to Sit Assist Contact Guard Assistance Sit to Supine Sit to Supine Assist Standby Assistance Scooting Scooting to Edge of Bed Standby Assistance OT-Transfer Assessment Sit to and From Stand Sit to and from Stand Contact Guard Assistance Transfers Transfer Ability Standby Assistance,Contact Guard Assistance Technique Transfer Destination Bed Devices Transfer Assistive Devices Gait Belt,Front Wheeled Walker Comments Mobility Comments CGA to get to the edge of the bed with increased time. CGA to stand and initially leaning back on his heels. CGA to take side step to the head of [facility] bed with the FWW. SBA to get back into bed. OT- Balance Assessment Sitting Balance and Reactions Static Sitting Balance Ability Good Dynamic Sitting Balance Ability Fair Standing Balance and Reactions Static Standing Balance Ability Fair Dynamic Standing Balance Ability Fair M8 OT- IP Objective Assessments Start: 11/18/24 11:41 Freq: Status: Active Protocol: Document 11/18/24 11:42 [facility] (Rec: 11/18/24 12:04 [facility] [id number]) OT Gross Range of Motion Upper Extremity Range of Motion Assessment Within Functional Limits OT Strength Comments Strength Comments LUE 4/5 and RUE 4-/5 to 4/5 OT- Coordination Assessment Upper Extremity Finger to Nose Test Within Functional Limits Finger Tapping Test Within Functional Limits Comments Coordination Comments Pt having difficulty to follow commands for finger to nose assessment. Right hand 35 sec and left hand 40 second - both scored below 10% for his agre group L hand > R hand. OT Sensation Assessment Comments Summary Comments Intact for light touch. Decreased proprioception for RUE elbow to distal and LUE from wrist to distal. M9 OT- IP Assessment and Plan Start: 11/18/24 11:41 Freq: Status: Active Protocol: Document 11/18/24 11:42 [facility] (Rec: 11/18/24 12:04 [facility] [id number]) OT Summary Assessment and Plan Potential Rehabilitation Potential Good Analytic Complexity at Evaluation Moderate Summary OT Impairments Pain,Strength,Balance, Functional Cognition, Functional Mobility,Self- Feeding,Grooming,Dressing, Toileting,Bathing,Toilet Transfers,Shower Transfers, Activity Tolerance Progress Towards Goals Slow Progress due to Pain,Slow Progress due to Cognition Assessment Summary Pt MOD complexity and main barriers are pain, difficulty to get his words or and comprehend information at this time. Pt having to use the FWW for safety at this time. Pt is insistent to go home and will benefit from 24/7 assist and home health versus outpt . Goals Self-Feeding Goal Independent Grooming Goal Independent Dressing Goal Independent Toileting Goal Independent Bathing Goal Standby Assistance Toilet Transfer Goal Independent Shower Transfer Goal Standby Assistance Days to Meet Goals 15 Frequency of Treatment Other frequency 5x/week Treatment Plan OT Treatment Plan ADL Training,Functional Cognition Training,Functional Mobility,Patient/Family Education,Discharge Planning Other Treatment Recommendations and Next SLUMS Treatment Focus Discharge Recommendations OT Discharge Recommendations Home with 24/7 Assist Available,Home Health, Outpatient PT Transportation Needs at Discharge Private Vehicle
[2024-11-18 12:00] VITALS: BP 145/76; PULSE 75; RESP 20; TEMP 36.3; O2SAT 97
[2024-11-18] MEDS: ACETAMINOPHEN 325 MG TABLET 650 MG PO (13:32)
--- NOTE | 2024-11-18 14:59 | CM.DPNOTE ---
DCP Cont Therapies recommending home w/assist vs SNF. Referral emailed to Bonilla at [facility] per TRENTON Mason, no SNF preference. At 3pm, no response from Bonilla. Plan: Discharge home w/SO and family to assist and HH vs SNF if secured and patient agrees. CM team following clinical course closely. Need for discharge coordination expected. SNOW
[2024-11-18 16:00] VITALS: BP 137/86; PULSE 66; RESP 16; TEMP 36.4; O2SAT 95
[2024-11-18 20:00] VITALS: BP 157/74; PULSE 65; RESP 22; TEMP 36.4; O2SAT 96
[2024-11-18] MEDS: ATORVASTATIN 20 MG TABLET 80 MG PO (21:06)
[2024-11-19] VITALS: BP 144/73; PULSE 69; RESP 22; TEMP 36.4; O2SAT 94
[2024-11-19 04:00] VITALS: BP 163/73; PULSE 74; RESP 20; TEMP 36.7; O2SAT 95
[2024-11-19 05:23] LABS: Add Manual Diff / Slide Review NO; Basophils Absolute Auto 0 /uL (0-100); Basophils Percent Auto 0.5 % (0-2); Eosinophils Absolute Auto 0 /uL (0-450); Eosinophils Percent Auto 0.3 % (2-4); Hematocrit 33.2 % (41-53); Lymphocytes Absolute Auto 2100 /uL (1100-4500); Lymphocytes Percent Auto 25.3 % (25-40); Mean Corpuscular HGB Conc 36.1 % (30-36); Mean Corpuscular Hemoglobin 31.4 PG (26-34); Monocytes Absolute Auto 1100 /uL (0-900); Neutrophils Absolute Auto 4900 /uL (1500-7000); Neutrophils Percent Auto 60.9 % (50-75); Platelet Count 195 X10^3/uL (150-400); Red Blood Cell Count 3.82 X10^6/uL (4.5-5.9); Red Cell Distribution Width 13.9 % (11.6-14.8); White Blood Cell Count 8.1 X10^3/uL (4.5-11.0)
[2024-11-19 05:36] LABS: Alanine Aminotransferase 16 IU/L (<50); Albumin 3.1 g/dL (3.5-5.0); Albumin Globulin Ratio 1.2 (1.0-2.8); Alkaline Phosphatase 59 U/L (38-126); Aspartate Aminotransferase 32 IU/L (17-59); BUN Creatinine Ratio 10.2 (6-22); Bilirubin Total 0.9 mg/dL (0.2-1.3); Blood Urea Nitrogen 13 mg/dL (9-20); Calcium 8.3 mg/dL (8.4-10.2); Carbon Dioxide 25 mmol/L (22-32); Chloride 108 mmol/L (98-107); Estimated Glomerular Filt Rate 58 mL/min (>60); Globulin 2.5 g/dL (1.7-4.1); Glucose 100 mg/dL (80-110); HEMOLYSIS < 15 (0-50); Magnesium 1.6 mg/dL (1.6-2.3); Potassium 3.5 mmol/L (3.4-5.1); Sodium 137 mmol/L (137-145); Total Protein 5.6 g/dL (6.3-8.2)
[2024-11-19 08:00] VITALS: BP 162/81; PULSE 75; RESP 16; TEMP 36.4; O2SAT 95
[2024-11-19] MEDS: ASPIRIN EC 81 MG TABLET PO (09:17)
[2024-11-19] MEDS: ENOXAPARIN 40 MG/0.4 ML SYRINGE SUBCUT (09:18)
[2024-11-19] MEDS: SODIUM CHLORIDE 0.9% FLUSH 10 ML IV ×2 (09:18→20:14)
--- NOTE | 2024-11-19 10:25 | PT.IPTN ---
Current Diagnoses Hyperlipidemia, unspecified (11/16/24) Other chronic pain (11/16/24) Essential (primary) hypertension (11/16/24) Cerebral infarction due to unspecified occlusion or stenosis of right posterior cerebral artery (11/16/24) Low back pain, unspecified (11/16/24) Other reduced mobility (11/16/24) Personal history of transient ischemic attack (TIA), and cerebral infarction without residual deficits (11/16/24) Physical Therapy Treatment Note M2 PT-IP Current Condition Start: 11/17/24 08:11 Freq: NEEDED Status: Active Protocol: Document 11/18/24 10:35 [facility] (Rec: 11/18/24 12:23 AB [id number]) Physical Therapy Current Condition Current Condition Evaluation Date 11/18/24 Treatment Diagnosis CVA; difficulty in walking Onset Date 11/16/24 M3 PT-IP Subjective Start: 11/17/24 08:11 Freq: NEEDED Status: Active Protocol: Document 11/19/24 10:25 [facility] (Rec: 11/19/24 13:09 AB [id number]) Subjective Physical Therapy Visit Type Type Treatment Note Visit Start Time 10:25 Visit Stop Time 10:55 Number of MANAGER STRATEGY & ACCOUNT Visits 0 Physical Therapy Visit Comments Patient Comments agreeable to do PT M4 PT-IP Mobility and Gait Start: 11/17/24 08:11 Freq: NEEDED Status: Active Protocol: Document 11/19/24 10:25 [facility] (Rec: 11/19/24 13:09 AB [id number]) PT-Bed Mobility Assessment Supine to Sit Supine to Sit Standby Assistance PT-Transfer Assessment Sit to and From Stand Sit to and from Stand Standby Assistance,Contact Guard Assistance,1 Person Assistance,Use of Upper Extremities Equipment Transfer Assistive Device Gait Belt,Front Wheeled Walker Orthotic/Prosthetic Devices or Brace: No Transfers Transfer Destination Toilet Transfer Technique ambulated Transfer Ability Level of Assist Standby Assistance,Contact Guard Assistance,1 Person Assistance,Use of Upper Extremities Comments Mobility Comments pt supine in bed and friend in room. pt agreed to do PT. pt 's friend left. completed supine to sit SBA. pt continues to have difficulty with speech. pt tends to direct his own care and does not want PT to assist or touch his back due to c/o pain. informed pt that PT will need to hold on to pt if unsteady and pt agreed. completed sit to stand SBA to CGA. pt with increase retrolean with pt pushing LE again the bed to stabilize. ambulated in the hallway using FWW SBA with occasionally CGA for steadiness. NAC informed PT that pt will be given a shower. informed pt and pt agreed to walk towards the shower. pt sat on shower chair. NAC took over pt's care. Gait Assessment Gait Gait Assistance Required: Standby Assistance,Contact Guard Assist Distance (Feet) 125 Able to Maintain Weight Bearing Status Yes During Gait Assistive Devices Assistive Device Gait Belt,Front Wheeled Walker Orthotic/Prosthetic Devices or Brace: No Gait Deviations General Gait Pattern Decreased Stride Length, Decreased Feet Clearance Factors Limiting Gait Function Factors Limiting Gait Function Decreased Activity Tolerance, Decreased Strength,Difficulty Following Directions,Pain,Poor Balance,Poor Safety Awareness M5 PT-IP Objective Assessments Start: 11/17/24 08:11 Freq: NEEDED Status: Active Protocol: Document 11/18/24 10:35 [facility] (Rec: 11/18/24 12:23 AB [id number]) Orientation Orientation/Cognition Level of Alertness Alert Orientation Name Language Function Ability Word Finding Difficulties,Hard of Hearing Safety Awareness Decreased Safety Awareness Memory Description Short Term Impaired,Skilled Nursing Impaired Gross Range of Motion Lower Extremity ROM Assessment Within Functional Limits Strength Lower Extremity Strength Assessment Within Functional Limits Coordination Assessment Gross Coordination Gross Coordination WNL Muscle Tone Muscle Tone WNL Yes M6 PT-IP Treatment Start: 11/17/24 08:11 Freq: NEEDED Status: Active Protocol: Document 11/19/24 10:25 [facility] (Rec: 11/19/24 13:09 AB [id number]) Physical Therapy Treatment Education Education Provided Safety M7 PT-IP Assessment and Plan Start: 11/17/24 08:11 Freq: NEEDED Status: Active Protocol: Document 11/19/24 10:25 [facility] (Rec: 11/19/24 13:09 AB [id number]) PT Summary Assessment and Plan Potential Rehabilitation Potential Fair Summary Impairments Pain,ROM,Strength,Balance, Coordination,Sensation,Tone, Cognition,Bed Mobility, Transfers,Gait,Activity Tolerance Progress Towards Goals Progressing Toward Goals Assessment Summary Pt requiring SBA to occasional CGA with mobility using FWW. continues to have unsteady gait. pt will need assistance at home and will benefit from HHPT. Goals Bed Mobility Goal Independent Transfer Goal Independent,Front Wheeled Walker Gait Goal Independent,Front Wheel Walker Gait Distance 300 Other Goals improve transfers and ambulation without AD >300 ft mod I Days to Meet Goals 10 Frequency of Treatment Frequency Of Treatment Once a Day Treatment Plan Physical Therapy Treatment Plan Bed Mobility Training,Transfer Training,Gait Training, Therapeutic Exercise,Balance Retraining,Discharge Planning, Hot or Cold Pack,Neuromuscular Re-ed,Coordination Retraining ,Manual Therapy Precautions Other Precautions falls Recommendations To Nursing Amount of Assist Needed 1 Person Assist Discharge Recommendations PT Discharge Recommendations Home with Assistance,Home Health,SNF Rehab,Home vs SNF Transportation Needs at Discharge Private Vehicle,Wheelchair/ Cabulance
[2024-11-19] MEDS: MAGNESIUM CHLORIDE 64 MG TABLET 128 MG PO (11:49)
[2024-11-19] MEDS: POTASSIUM CHLORIDE 20 MEQ TAB PO (11:49)
[2024-11-19] MEDS: CODEINE/GUAIFENESIN LIQUID 5ML UDC 10 ML PO ×2 (11:54→20:15)
--- NOTE | 2024-11-19 11:59 | CM.DPNOTE ---
Addendum entered by TOMMY Corrigan 11/19/24 14:41: RECORDIST CHIEF, pt, SO Marlon, son Amaury, and pt's TALON all met in room. Reviewed DCP/recs. After lengthy discussion, pt agreeable to SNF placement. No preference between [facility] and [facility]. RECORDIST CHIEF answered questions to best of ability. Amaury and pt report there is a POLST but no DPOA ppwk. Pt completed DPOA paperwork, RECORDIST CHIEF gave originals back to pt and placed copy in scanning folder. Per Bonilla from [facility], waiting official acceptance/ins auth. RECORDIST CHIEF completed PASRR. P: anticipate dc to [facility] once ins auth/official acceptance/pt medically stable. transport needed. CM team will continue to follow closely SL Original Note: DCP note RECORDIST CHIEF lvm with Bonilla from [facility] to ask for updates on accepting pt, no response as of 1200. Per RN, pt has been alert in room eating tacos, has not worked with PT yet today. Per RN, pt's son Amaury is on his way to meet with pt and RN will notify RECORDIST CHIEF when son is here to review DCP as a team. Pt sleeping soundly when this RECORDIST CHIEF attempted to meet with him. Plan: Discharge home w/SO and family to assist and HH (referral needed) vs SNF if secured (PASRR needed) and patient agrees. CM team following clinical course closely. Need for discharge coordination expected. TOMMY Corrigan
[2024-11-19 12:00] VITALS: BP 152/81; PULSE 75; RESP 16; TEMP 36.3; O2SAT 98
--- NOTE | 2024-11-19 12:09 | PM.PN.1 ---
Subjective Subjective Date Patient Seen: 11/19/24 Time Patient Seen: 09:15 Interval history: Summary: 74 M admitted with multiple falls after MRI showed an acute infarct in the R occipital lobe. Patient denies complaints, other than falling a lot recently. His history is inconsistent. S: He has no complaints today. He reports his steadiness appears to be improving, and he was up walking with physical therapy with a walker with standby assist. Exam Vital Signs (past 8 hours): - 11/19/24 08:00 Temperature 97.5 F L Pulse Rate 75 Respiratory Rate 16 Blood Pressure 162/81 H Pulse Oximetry 95 Oxygen Flow Rate 0 Oxygen Delivery Method Room Air Oxygen Flow Rate 0 Narrative Exam Narrative: NAD, alert and oriented. Fluent speech. Lungs are clear, normal rate and effort. Heart is regular, no murmur gallop or rub. Abdomen is soft, non distended. Extremities are free of edema. Normal straight leg raise bilaterally, can lift arms in the air bilaterally. He was conjugate gaze with no visual field deficits and no facial droop. Objective Labs 11/19/24 04:56 11/19/24 04:56 Labs: Laboratory Results - last 24 hr 11/19/24 04:56 WBC 8.1 RBC 3.82 L Hgb 12.0 L Hct 33.2 L MCV 87.0 MCH 31.4 MCHC 36.1 H RDW 13.9 Plt Count 195 Neut % (Auto) 60.9 Lymph % (Auto) 25.3 [place] % (Auto) 13.0 Eos % (Auto) 0.3 L Baso % (Auto) 0.5 Neut # (Auto) 4900 Lymph # (Auto) 2100 [place] # (Auto) 1100 H Eos # (Auto) 0 Baso # (Auto) 0 Sodium 137 Potassium 3.5 Chloride 108 H Carbon Dioxide 25 BUN 13 Creatinine 1.28 H Estimated GFR 58 L BUN/Creatinine Ratio 10.2 Glucose 100 Calcium 8.3 L Magnesium 1.6 Total Bilirubin 0.9 AST 32 ALT 16 Alkaline Phosphatase 59 Total Protein 5.6 L Albumin 3.1 L Globulin 2.5 Albumin/Globulin Ratio 1.2 [facility] Social History household members: spouse Smoking Status: Current every day smoker alcohol intake: current Assessment & Plan Assessment & Plan narrative: 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 - ischemic or embolic possible, though no known afib and NSR EKG on presentation. No events on telemetry to date. - telemetry, echo and labs pending, ASA, statin. Given hx of ICH, will not initiate plavix in addition to aspirin. - PT, OT assessment - Hx of hemorrhagic stroke 3 years ago, seen in [facility] and transferred to [facility]. Had R owen hole and MMA embolization. - possible neglect versus chronic cognitive changes. HLD, stable - he was on 40 mg of Lipitor daily, increased to 80. - TG 306, TC 187, LDL 102, HDL 24. - TSH 2.73. HTN, stable - at home on Lisinopril 10 mg daily and Norvasc 10 mg daily - did not take meds last week, according to - both held but will resume. LBP, stable - chronic - CS MRI revealed stenosis at C3-4 level - UDS positive for marijuana Rhabdomyolysis, present on admission and resolved. - mild CK elevation >500 on admit, improving today at 411. Continue IV fluids today. Plan: -continue current medical therapy, with monotherapy with aspirin and statin. -continue PT, OT, and speech evaluation. -anticipate nursing home facility for ongoing rehabilitation. Code: Full, surrogate is patient's spouse DVT: Lovenox daily PRECIOUS: 11/20- I have utilized all available immediate resources to obtain, update, or review the patient's current medications. Dispo: patient admitted under inpatient status. Unclear if will be able to discharge home or possible SNF vs acute rehab, will have PT/OT evaluations. PROFEE Charge codes Subsequent inpatient/observation care: [id number]
[2024-11-19] MEDS: ACETAMINOPHEN 325 MG TABLET 650 MG PO (14:47)
[2024-11-19 16:00] VITALS: BP 170/83; PULSE 72; RESP 18; TEMP 36.6; O2SAT 97
[2024-11-19 20:00] VITALS: BP 131/67; PULSE 65; RESP 20; TEMP 36.3; O2SAT 96
[2024-11-19] MEDS: ATORVASTATIN 20 MG TABLET 80 MG PO (20:13)
[2024-11-20] VITALS (7 sets, daily range): BP systolic 135–155; BP diastolic 72–82; PULSE 63–72; RESP 14–20; TEMP 36.2–36.5; O2SAT 95–98
--- NOTE | 2024-11-20 02:25 | PC.NURSE ---
Assumed care of patient at 0130.
[2024-11-20 06:06] LABS: Alanine Aminotransferase 19 IU/L (<50); Albumin 3.2 g/dL (3.5-5.0); Albumin Globulin Ratio 1.2 (1.0-2.8); Alkaline Phosphatase 65 U/L (38-126); Aspartate Aminotransferase 37 IU/L (17-59); BUN Creatinine Ratio 10.8 (6-22); Bilirubin Total 0.8 mg/dL (0.2-1.3); Blood Urea Nitrogen 16 mg/dL (9-20); Calcium 8.5 mg/dL (8.4-10.2); Carbon Dioxide 25 mmol/L (22-32); Chloride 109 mmol/L (98-107); Estimated Glomerular Filt Rate 49 mL/min (>60); Globulin 2.7 g/dL (1.7-4.1); Glucose 106 mg/dL (80-110); HEMOLYSIS < 15 (0-50); Magnesium 1.9 mg/dL (1.6-2.3); Sodium 137 mmol/L (137-145); Total Protein 5.9 g/dL (6.3-8.2)
[2024-11-20] MEDS: ENOXAPARIN 40 MG/0.4 ML SYRINGE SUBCUT (09:23)
[2024-11-20] MEDS: ASPIRIN EC 81 MG TABLET PO (09:23)
[2024-11-20] MEDS: ACETAMINOPHEN 325 MG TABLET 650 MG PO (09:24)
[2024-11-20] MEDS: SODIUM CHLORIDE 0.9% FLUSH 10 ML IV ×2 (09:24→20:31)
--- NOTE | 2024-11-20 10:56 | P.PN_ITS ---
Subjective Subjective Date Patient Seen: 11/20/24 Time Patient Seen: 08:35 Interval history: Summary: 74 M admitted with multiple falls after MRI showed an acute infarct in the R occipital lobe. Patient denies complaints, other than falling a lot recently. His history is inconsistent. S: He has no complaints today. He reports his steadiness appears to be improving, and he was up walking with physical therapy yesterday with a walker with standby assist. Exam Vital Signs (past 8 hours): - 11/20/24 04:00 11/20/24 08:00 Temperature 97.6 F 97.3 F L Pulse Rate 63 72 Respiratory Rate 20 16 Blood Pressure 140/74 155/75 H Pulse Oximetry 98 95 Oxygen Flow Rate 0 0 Oxygen Delivery Method Room Air Oxygen Flow Rate 0 Narrative Exam Narrative: NAD, alert and oriented. Fluent speech. Lungs are clear, normal rate and effort. Heart is regular, no murmur gallop or rub. Abdomen is soft, non distended. Extremities are free of edema. Normal straight leg raise bilaterally, can lift arms in the air bilaterally. He was conjugate gaze with no visual field deficits and no facial droop. Objective Labs 11/19/24 04:56 11/20/24 05:37 Labs: Laboratory Results - last 24 hr 11/20/24 05:37 Sodium 137 Potassium 4.0 Chloride 109 H Carbon Dioxide 25 BUN 16 Creatinine 1.48 H Estimated GFR 49 L BUN/Creatinine Ratio 10.8 Glucose 106 Calcium 8.5 Magnesium 1.9 Total Bilirubin 0.8 AST 37 ALT 19 Alkaline Phosphatase 65 Total Protein 5.9 L Albumin 3.2 L Globulin 2.7 Albumin/Globulin Ratio 1.2 [facility] Social History household members: spouse Smoking Status: Current every day smoker alcohol intake: current Assessment & Plan Assessment & Plan narrative: Acute ischemic Rt CENTRAL PROCESSING TECH CVA, present on admission and active. - ischemic or embolic possible, though no known afib and NSR EKG on presentation. No events on telemetry to date. - telemetry, echo and labs pending, ASA, statin. Given hx of ICH, will not initiate plavix in addition to aspirin. - tobacco cessation/nicotine patch - Hx of hemorrhagic stroke 3 years ago, seen in [facility] and transferred to [facility] s/p R owen hole and MMA embolization. - possible neglect versus chronic cognitive changes. 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 Consider home option with HH services. HLD, stable - he was on 40 mg of Lipitor daily, increased to 80. - TG 306, TC 187, LDL 102, HDL 24. - TSH 2.73. HTN, stable - at home on Lisinopril 10 mg daily and amlodipine 10 mg daily - did not take meds last week, according to so continue to observe and await response on therapeutic dosing LBP, stable - chronic - UDS positive for marijuana Rhabdomyolysis, present on admission and resolved. - mild CK elevation >500 on admit, improving to 411. CKD - Stable at baseline Tobacco use - Cessation advised Plan: -continue current medical therapy, with monotherapy with aspirin and statin. -continue PT, OT, and speech evaluation. -anticipate custodial facility for ongoing rehabilitation versus home with HH. Code: Full, surrogate is patient's spouse DVT: Lovenox daily PRECIOUS: 11/21 Dispo: patient admitted under inpatient status.
--- NOTE | 2024-11-20 12:09 | PT-IP ANOTE ---
PT checks on pt to assess mobility and assist up to chair for lunch. Pt with FRONT DESK AUXILIARY and he refuses to get up with PT. Note that pt's current PT recommendation from last date's PT note is home with assistance and HHPT.
[2024-11-20] MEDS: AMLODIPINE 5 MG TABLET 10 MG PO (13:54)
[2024-11-20] MEDS: lisinopriL 10 MG TABLET PO (13:54)
[2024-11-20] MEDS: ATORVASTATIN 20 MG TABLET 80 MG PO (20:31)
[2024-11-21] VITALS (7 sets, daily range): BP systolic 112–142; BP diastolic 62–74; PULSE 63–95; RESP 14–19; TEMP 35.4–36.4; O2SAT 93–97
[2024-11-21 05:49] LABS: Magnesium 1.9 mg/dL (1.6-2.3)
--- NOTE | 2024-11-21 08:48 | PM.PN.1 ---
Subjective Subjective Date Patient Seen: 11/21/24 Interval history: He is seen in his room here to evaluate his post stroke weakness. The CBC was normal on 11/19. The creatinine was 1.48 on 11/20. When 1st seen his girlfriend is visiting. When 2nd seen his ex [id number] is visiting. He was very appropriate and calm at the 1st visit and very agitated at the 2nd visit. His agitation is around his goal of leaving the hospital ?getting out of here. ? Insurance approval for the [facility] re[facility] is still pending. The echocardiogram was normal. The MRI showed right occipital CVAs. Exam Vital Signs (past 8 hours): - 11/21/24 04:00 Temperature 97.5 F L Pulse Rate 90 Respiratory Rate 16 Blood Pressure 131/71 Pulse Oximetry 93 Oxygen Flow Rate 0 Oxygen Delivery Method Room Air Oxygen Flow Rate 0 Narrative Exam Narrative: He is alert and oriented x3. He is able to interact at a higher level but becomes quite agitated and frustrated quite easily. No apparent distress other than the frustration of not being able to leave until insurance approves it. Heart is regular rate and rhythm without murmur Lungs are clear to auscultation bilaterally Extremities have no ankle edema. 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 - Small right Occipital CVA's on MRI - ischemic or embolic possible, though no known afib and NSR EKG on presentation. No events on telemetry to date. - telemetry, echo and labs pending, ASA, statin. Given hx of ICH, avoided plavix and started on aspirin. - tobacco cessation/nicotine patch - Hx of hemorrhagic stroke 3 years ago, seen in [facility] and transferred to [facility] s/p R owen hole and MMA embolization. - possible left sided neglect versus chronic cognitive changes. 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 Consider home option with services - not realistic. Waiting for [facility] approval for [facility]. HLD, stable - he was on 40 mg of Lipitor daily, increased to 80. - TG 306, TC 187, LDL 102, HDL 24. - TSH 2.73. HTN, stable - at home on Lisinopril 10 mg daily and amlodipine 10 mg daily - did not take meds last week, according to so continue to observe and await response on therapeutic dosing LBP, stable - chronic - UDS positive for marijuana Rhabdomyolysis, present on admission and resolved. - mild CK elevation >500 on admit, down to 411. CKD - Stable at baseline Tobacco use - Cessation advised Plan: -continue current medical therapy, with monotherapy with aspirin and statin. -continue PT, OT, and speech evaluation. Consider home option with services - not realistic. Waiting for [facility] approval for [facility]. Code: Full, surrogate is patient's spouse/(girlfriend) DVT: Lovenox daily PRECIOUS: 11/21 Time-Based Coding :: [TOTAL MINUTES] spent with patient and on the chart (including review of chart, obtaining history, exam, reviewing outside data, placing orders, documenting exam and treatment plan, and counseling patient) on [DATE].
[2024-11-21] MEDS: ENOXAPARIN 40 MG/0.4 ML SYRINGE SUBCUT (08:52)
[2024-11-21] MEDS: AMLODIPINE 5 MG TABLET 10 MG PO (08:53)
[2024-11-21] MEDS: SODIUM CHLORIDE 0.9% FLUSH 10 ML IV ×2 (08:53→20:52)
[2024-11-21] MEDS: lisinopriL 10 MG TABLET PO (08:53)
[2024-11-21] MEDS: ACETAMINOPHEN 325 MG TABLET 650 MG PO (08:53)
[2024-11-21] MEDS: ASPIRIN EC 81 MG TABLET PO (08:53)
--- NOTE | 2024-11-21 12:46 | CM.DPNOTE ---
DCP Note LEADER WRITER reviewed EMR Per Bonilla at [facility], clinical acceptance/auth pending. hopeful to hear back by EOD. LEADER WRITER emailed updated clinicals to Bonilla. LEADER WRITER met with pt, TALON, and sister in room. reviewed DCP/insurance auth barrier. pt frustrated by delays. remains agreeable to [facility] [place] for SNF. Pt reports having prime, non of pt's information is on file. LEADER WRITER provided pt with available INS information in the chart. pt and family appreciative and will continue to follow for updates. PASRR completed. Per hospitalist, pt medically stable for dc once dispo arranged. P: pending official acceptance/ins auth. transport needed. anticipate dc to [facility] in [place] once in place. CM team will continue to follow closely TOMMY Corrigan
--- NOTE | 2024-11-21 15:57 | OT.IP.TRT ---
Current Diagnoses Hyperlipidemia, unspecified (11/16/24) Other chronic pain (11/16/24) Essential (primary) hypertension (11/16/24) Cerebral infarction due to unspecified occlusion or stenosis of right posterior cerebral artery (11/16/24) Low back pain, unspecified (11/16/24) Other reduced mobility (11/16/24) Personal history of transient ischemic attack (TIA), and cerebral infarction without residual deficits (11/16/24) Occupational Therapy Treatment Note M2 OT-IP Current Condition Start: 11/18/24 11:41 Freq: Status: Active Protocol: Document 11/18/24 11:42 CCC (Rec: 11/18/24 12:04 CCC [id number]) Occupational Therapy Current Condition Current Condition Evaluation Date 11/18/24 Treatment Diagnosis CVA Diagnosis Onset Date 11/16/24 M3 OT- IP Subjective and Pain Start: 11/18/24 11:41 Freq: Status: Active Protocol: Document 11/21/24 16:15 CGR (Rec: 11/21/24 16:32 CGR [id number]) OT- Subjective Occupational Therapy Visit Type Type Treatment Note Visit Start Time 15:32 Visit Stop Time 15:57 Notes Per nursing, pt has not been up today and would benefit from a shower. OT Pain Assessment Pain When Pain Assessed At Rest Pain Present Pain Present Denied Pain M4 OT- IP ADL's Start: 11/18/24 11:41 Freq: Status: Active Protocol: Document 11/21/24 16:15 CGR (Rec: 11/21/24 16:32 CGR [id number]) OT [id number] Comments OT Self-Feeding Comments not meal time but of note, pt had not eaten his lunch. OT ADL-Grooming General Evaluation Grooming Ability Standby Assistance Areas Needing Assistance Face Washing Comments OT Grooming Comments in shower OT ADL-Oral Care Comments Oral Care Comments not performed OT ADL-Dressing General Eval Upper Body Dressing Ability Maximum Assistance Lower Body Dressing Ability Standby Assistance Areas Needing Assistance Socks Comments OT Dressing Comments Pt initially states that he cant don socks but then was able to perform seated on toielt. [facility] gown. OT ADL-Toileting General Evaluation Toileting Ability Standby Assistance Comments OT Toileting Comments Pt states that he need to get to the toielt after he returned to the chair and was assisted to the toielt. Pt then left sitting on toielt with call string in front pocket of his gown. OT ADL-Bathing Bathing Type Bathing Type Shower General Evaluation Bathing Ability Minimal Assistance Areas Needing Assistance Retrieving/Setting Up Items Comments OT Bathing Comments Pt needed assist with washing his back and his buttocks for throughness. M5 OT- IP IADL's Start: 11/18/24 11:41 Freq: Status: Active Protocol: Document 11/18/24 11:42 [facility] (Rec: 11/18/24 12:04 [facility] [id number]) OT-Instrumental Activities of Daily Living Deficits IADL Deficits Identified Deficits Home Safety Awareness Awareness of Need for Assistance at Home Decreased Awareness Home Safety Comments Pt inisistent of his care and havign difficulty with word finding and comprehension at this time. Medication Management Medication Management Comments Pt will need assist. Money Management Money Management Comments Pt will need assist. Meal Preparation Meal Preparation Comments Pt will need assist. Director Surgical Director Surgical Comments Pt will need assist. Driving Driving Concerns Identified Regarding Safety Driving Comments Recommended pt not drive. M6 OT- IP Functional Cognition Start: 11/18/24 11:41 Freq: Status: Active Protocol: Document 11/18/24 11:42 [facility] (Rec: 11/18/24 12:04 [facility] [id number]) Cognitive Factors Limiting Selfcare Function Cognitive Ability Level of Alertness Alert,Confusional State Patient Orientation Name,Place Attention Span Ability Capable of Focused Attention, Unable to Focus Ability to Follow Commands Able to Follow One Step Commands with Increased Time, Able to Follow One Step Commands with Repetition Memory Description Short Term Impaired,Working Impaired Problem Solving Ability Needs Assist to Identify Solutions Cognitive Comments Cognitive Assessment Comments Pt havign difficulty to follow and comprehend directions. Pt easily distracted and needng concrete cues to follow in addition to visual and tactile cues. Pt is aware that he is not thinking well at this time and insists that he will be able to care for himself at home. OT- Vision and Hearing OT- Hearing Assessment OT- Hearing Assessment WFL OT- Vision Assessment Visual Acuity WFL Visual Attentiveness WFL Occular Pursuits WFL Visual [place] WFL Diplopia Absent M7 OT- IP Mobility and Balance Start: 11/18/24 11:41 Freq: Status: Active Protocol: Document 11/21/24 16:15 CGR (Rec: 11/21/24 16:32 CGR [id number]) OT- Bed Mobility Assessment Supine to Sit Supine to Sit Assist Standby Assistance Scooting Scooting to Edge of Bed Standby Assistance OT-Transfer Assessment Sit to and From Stand Sit to and from Stand Contact Guard Assistance Transfers Transfer Ability Contact Guard Assistance Technique Transfer Destination Bed,Chair,Shower Stall,Toilet Transfer Technique Stand Step Pivot Devices Transfer Assistive Devices Gait Belt,Front Wheeled Walker Comments Mobility Comments Pt requests gait belt up high because of bruising. OT- Balance Assessment Sitting Balance and Reactions Static Sitting Balance Ability Good Dynamic Sitting Balance Ability Good M8 OT- IP Objective Assessments Start: 11/18/24 11:41 Freq: Status: Active Protocol: Document 11/18/24 11:42 CCC (Rec: 11/18/24 12:04 CCC [id number]) OT Gross Range of Motion Upper Extremity Range of Motion Assessment Within Functional Limits OT Strength Comments Strength Comments LUE 4/5 and RUE 4-/5 to 4/5 OT- Coordination Assessment Upper Extremity Finger to Nose Test Within Functional Limits Finger Tapping Test Within Functional Limits Comments Coordination Comments Pt having difficulty to follow commands for finger to nose assessment. Right hand 35 sec and left hand 40 second - both scored below 10% for his agre group L hand > R hand. OT Sensation Assessment Comments Summary Comments Intact for light touch. Decreased propriocption for RUE elbow to distal and LUE from wrist to distal. M9 OT- IP Assessment and Plan Start: 11/18/24 11:41 Freq: Status: Active Protocol: Document 11/21/24 16:15 CGR (Rec: 11/21/24 16:32 CGR [id number]) OT Summary Assessment and Plan Potential Rehabilitation Potential Good Analytic Complexity at Evaluation Moderate Summary OT Impairments Pain,Strength,Balance, Functional Cognition, Functional Mobility,Self- Feeding,Grooming,Dressing, Toileting,Bathing,Toilet Transfers,Shower Transfers, Activity Tolerance Progress Towards Goals Slow Progress due to Pain,Slow Progress due to Cognition Assessment Summary Pt agreeable to showering today and performed with some assist. Per nursing, pt has not been up today and has been declining. Pt showered and states that his back is very tender even with washing it lightly. Pt performed drying off and dressing with some assist then returned to chair prior to saying that he needed to get back to the toilet. Pt then ambulated to the toilet and left sitting on the toilet . Nursing notified. Pt with multiple falls at home and would be best suited to go to SNF. Goals Self-Feeding Goal Independent Grooming Goal Independent Dressing Goal Independent Toileting Goal Independent Bathing Goal Standby Assistance Toilet Transfer Goal Independent Shower Transfer Goal Standby Assistance Days to Meet Goals 15 Frequency of Treatment Other frequency 5x/week Treatment Plan OT Treatment Plan ADL Training,Functional Cognition Training,Functional Mobility,Patient/Family Education,Discharge Planning Other Treatment Recommendations and Next SLUMS Treatment Focus Discharge Recommendations OT Discharge Recommendations Home with 24/7 Assist Available,Home Health, Outpatient PT Transportation Needs at Discharge Private Vehicle
[2024-11-21] MEDS: ATORVASTATIN 20 MG TABLET 80 MG PO (20:51)
[2024-11-22] VITALS (7 sets, daily range): BP systolic 104–140; BP diastolic 61–76; PULSE 61–86; RESP 16–19; TEMP 36.2–37; O2SAT 96–98
--- NOTE | 2024-11-22 07:56 | P.DS_ITS ---
History of Present Illness History of Present Illness Date Patient Seen: 11/22/24 Chief complaint: FELL DOWN AND HAS BRUSE ON BACK. Narrative: 74 y/o with PMH of hemorrhagic stroke, HLD, chronic LBP with impaired balance and gait, smoking, who sustained GLF 2 days ago bruising left flank and left periorbital area. who came with complaining on above. ED workup with NIH stroke scale of 0. MRI showing acute, ischemic, right occipital infarcts. He is borderline hypertensive. Elevated CK and BMP. Cr 1.6. Baseline unknown Pending lipids, A1C, echocardiogram. Telemetry monitoring while in the ED - sinus rhythm. Had ASA, high-intensity statin and IVFs. 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 - Small right Occipital CVA's on MRI - ischemic or embolic possible, though no known afib and NSR EKG on presentation. No events on telemetry to date. - telemetry, echo and labs pending, ASA, statin. Given hx of ICH, avoided plavix and started on aspirin. - tobacco cessation/nicotine patch - Hx of hemorrhagic stroke 3 years ago, seen in [facility] and transferred to [facility] s/p R owen hole and MMA embolization. - possible left sided neglect versus chronic cognitive changes. 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 Consider home option with services - not realistic. Waiting for [facility] approval for [facility]. HLD, stable - he was on 40 mg of Lipitor daily, increased to 80. - TG 306, TC 187, LDL 102, HDL 24. - TSH 2.73. HTN, stable - at home on Lisinopril 10 mg daily and amlodipine 10 mg daily - did not take meds last week, according to so continue to observe and await response on therapeutic dosing LBP, stable - chronic - UDS positive for marijuana Rhabdomyolysis, present on admission and resolved. - mild CK elevation >500 on admit, down to 411. CKD - Stable at baseline Tobacco use - Cessation advised Plan: -continue current medical therapy, with monotherapy with aspirin and statin. -continue PT, OT, and speech evaluation. Consider home option with services - not realistic. Waiting for [facility] approval for [facility]. Code: Full, surrogate is patient's spouse/(girlfriend) DVT: Lovenox daily PRECIOUS: 11/21 Exam Vital Signs (past 8 hours): - 11/22/24 02:22 11/22/24 06:00 Temperature 97.1 F L 98.6 F Pulse Rate 63 74 Respiratory Rate 18 18 Blood Pressure 123/64 140/76 Pulse Oximetry 96 96 Oxygen Flow Rate 0 0 Oxygen Delivery Method Room Air Oxygen Flow Rate 0 Objective Labs 11/19/24 04:56 11/20/24 05:37 [facility] Social History household members: spouse Smoking Status: Current every day smoker alcohol intake: current Discharge Plan Discharge orders & Medications Prescriptions: No Action amlodipine 10 mg tablet 10 mg PO DAILY dexamethasone 4 mg tablet 4 mg PO DAILY lisinopril 10 mg tablet 10 mg PO DAILY atorvastatin 40 mg Tablet 40 mg PO DAILY celecoxib 200 mg Capsule 200 mg PO DAILY
[2024-11-22] MEDS: AMLODIPINE 5 MG TABLET 10 MG PO (09:07)
[2024-11-22] MEDS: lisinopriL 10 MG TABLET PO (09:07)
[2024-11-22] MEDS: SODIUM CHLORIDE 0.9% FLUSH 10 ML IV ×2 (09:08→20:46)
[2024-11-22] MEDS: ACETAMINOPHEN 325 MG TABLET 650 MG PO ×2 (09:08→18:19)
[2024-11-22] MEDS: ASPIRIN EC 81 MG TABLET PO (09:08)
[2024-11-22] MEDS: ENOXAPARIN 40 MG/0.4 ML SYRINGE SUBCUT (09:08)
--- NOTE | 2024-11-22 12:13 | CM.DPC ---
DCP Cont. Reviewed EMR and team rounds for status updates. Called Jimbo early this am to clarify if the [employer] auth had been approved, no auth in place as of yet today at 12:14pm. Faxed additional clinicals to [facility], per [employer]'s request. Likely will be d/c tomorrow if auth is approved, will need transportation setup in the am once confirmed.
--- NOTE | 2024-11-22 13:48 | PT.IPTN ---
Current Diagnoses Hyperlipidemia, unspecified (11/16/24) Other chronic pain (11/16/24) Essential (primary) hypertension (11/16/24) Cerebral infarction due to unspecified occlusion or stenosis of right posterior cerebral artery (11/16/24) Low back pain, unspecified (11/16/24) Other reduced mobility (11/16/24) Personal history of transient ischemic attack (TIA), and cerebral infarction without residual deficits (11/16/24) Physical Therapy Treatment Note M2 PT-IP Current Condition Start: 11/17/24 08:11 Freq: NEEDED Status: Active Protocol: Document 11/22/24 13:27 SP (Rec: 11/22/24 14:22 SP [id number]) Physical Therapy Current Condition Current Condition Evaluation Date 11/18/24 Treatment Diagnosis CVA; difficulty in walking Onset Date 11/16/24 M3 PT-IP Subjective Start: 11/17/24 08:11 Freq: NEEDED Status: Active Protocol: Document 11/22/24 13:27 SP (Rec: 11/22/24 14:22 SP [id number]) Subjective Physical Therapy Visit Type Type Treatment Note Visit Start Time 13:27 Visit Stop Time 13:48 Number of TOWER ATTENDANT Visits 1 Physical Therapy Visit Comments Patient Comments Pt agreeable to working TOWER ATTENDANT. Therapy Pain Assessment Location Back Scale Used pain scale not stated Pain Behaviors Facial Grimacing Pain Management Techniques Distraction,Re-positioning M4 PT-IP Mobility and Gait Start: 11/17/24 08:11 Freq: NEEDED Status: Active Protocol: Document 11/22/24 13:27 SP (Rec: 11/22/24 14:22 SP [id number]) PT-Bed Mobility Assessment Supine to Sit Supine to Sit Standby Assistance Sit to Supine Sit to Supine Standby Assistance Scooting Scooting to Edge of Bed Standby Assistance PT-Transfer Assessment Sit to and From Stand Sit to and from Stand Standby Assistance,Contact Guard Assistance,1 Person Assistance,Use of Upper Extremities Equipment Transfer Assistive Device Gait Belt,Front Wheeled Walker Orthotic/Prosthetic Devices or Brace: No Transfers Transfer Destination Bed Transfer Technique ambulated with FWW Transfer Ability Level of Assist Standby Assistance,Contact Guard Assistance,1 Person Assistance,Use of Upper Extremities Comments Mobility Comments Orthostatic vitals within normal limits: supine 118. 61 HR 59 SaO2 945 on RA, seated 108/62 HR 68 standing 104/62 HR 76. C/o back pain during attempt sup>sit, educational cues for log roll L, light TrAb engagement and use BUEs support on bed trunk righting to sit vs sit straight up. Scoot to EOB SBA. Completed STS BUE push from bed, noted posterior knees supported little coming to standing on bed frame. PRogressed gait 2 laps around room 60 ft and into hallway 150 ft /c FWW, cues for pivot BLEs and slower transition FWW during turn for back health support and stability due to demonstrated trunk sways lateral/retro lean but no LOB improved self recovery, improved transition pivot 180 deg end tx next to bed. Instruction side step HOB before sitting ease laying down without needing scoot up in bed. Pt reports very tired compared to what used to with this activity. TOWER ATTENDANT recommending SNF vs HHPT 01/06 to progress strength in functional mobility. Gait Assessment Gait Gait Assistance Required: Standby Assistance,Contact Guard Assist Distance (Feet) 180 Able to Maintain Weight Bearing Status Yes During Gait Assistive Devices Assistive Device Gait Belt,Front Wheeled Walker Orthotic/Prosthetic Devices or Brace: No Gait Deviations General Gait Pattern Antalgic,Decreased Stride Length,Decreased Feet Clearance,Wide Based Gait Factors Limiting Gait Function Factors Limiting Gait Function Decreased Activity Tolerance, Decreased Strength,Difficulty Following Directions,Pain,Poor Balance,Poor Safety Awareness Comments Gait Comments see mobility comments Stair Climbing Assessment Comments Stair Climbing Comments Reports has elevator so not need to assess stair mgt. PT-Balance Assessment Sitting Balance and Reactions Static Sitting Balance Ability Good Dynamic Sitting Balance Ability Good Standing Balance and Reactions Static Standing Balance Ability Good Dynamic Standing Balance Ability Fair Device Used with FWW during mobility M5 PT-IP Objective Assessments Start: 11/17/24 08:11 Freq: NEEDED Status: Active Protocol: Document 11/18/24 10:35 AB (Rec: 11/18/24 12:23 AB [id number]) Orientation Orientation/Cognition Level of Alertness Alert Orientation Name Language Function Ability Word Finding Difficulties,Hard of Hearing Safety Awareness Decreased Safety Awareness Memory Description Short Term Impaired,Half-Way Impaired Gross Range of Motion Lower Extremity ROM Assessment Within Functional Limits Strength Lower Extremity Strength Assessment Within Functional Limits Coordination Assessment Gross Coordination Gross Coordination WNL Muscle Tone Muscle Tone WNL Yes M6 PT-IP Treatment Start: 11/17/24 08:11 Freq: NEEDED Status: Active Protocol: Document 11/22/24 13:27 SP (Rec: 11/22/24 14:22 SP [id number]) Physical Therapy Treatment Education Education Provided Safety M7 PT-IP Assessment and Plan Start: 11/17/24 08:11 Freq: NEEDED Status: Active Protocol: Document 11/22/24 13:27 SP (Rec: 11/22/24 14:22 SP [id number]) PT Summary Assessment and Plan Potential Rehabilitation Potential Fair Summary Impairments Pain,ROM,Strength,Balance, Coordination,Sensation,Tone, Cognition,Bed Mobility, Transfers,Gait,Activity Tolerance Progress Towards Goals Progressing Toward Goals Goals Bed Mobility Goal Independent Transfer Goal Independent,Front Wheeled Walker Gait Goal Independent,Front Wheel Walker Gait Distance 300 Other Goals improve transfers and ambulation without AD >300 ft mod I Days to Meet Goals 10 Frequency of Treatment Frequency Of Treatment Once a Day Treatment Plan Physical Therapy Treatment Plan Bed Mobility Training,Transfer Training,Gait Training, Therapeutic Exercise,Balance Retraining,Discharge Planning, Hot or Cold Pack,Neuromuscular Re-ed,Coordination Retraining ,Manual Therapy Other Recommendations and Next Treatment Log roll technique, safety Focus pivot turns /c FWW, progress distance gait, STS, balance activities. Precautions Other Precautions falls Recommendations To Nursing Amount of Assist Needed Standby Assistance,1 Person Assist Discharge Recommendations PT Discharge Recommendations Home with 01/06 Assist Available,Home Health,SNF Rehab,Home vs SNF Transportation Needs at Discharge Private Vehicle,Wheelchair/ Cabulance
--- NOTE | 2024-11-22 14:29 | PC.NURSE ---
pt alert and oriented. SBA with FWW to walk in loya . Turning independently in bed. Calls appropriately and able to make needs known. Eager to discharge today. call light in reach. Care continues.
--- NOTE | 2024-11-22 15:20 | OT.IP.TRT ---
Current Diagnoses Hyperlipidemia, unspecified (11/16/24) Other chronic pain (11/16/24) Essential (primary) hypertension (11/16/24) Cerebral infarction due to unspecified occlusion or stenosis of right posterior cerebral artery (11/16/24) Low back pain, unspecified (11/16/24) Other reduced mobility (11/16/24) Personal history of transient ischemic attack (TIA), and cerebral infarction without residual deficits (11/16/24) Occupational Therapy Treatment Note M2 OT-IP Current Condition Start: 11/18/24 11:41 Freq: Status: Active Protocol: Document 11/18/24 11:42 [facility] (Rec: 11/18/24 12:04 [facility] [id number]) Occupational Therapy Current Condition Current Condition Evaluation Date 11/18/24 Treatment Diagnosis CVA Diagnosis Onset Date 11/16/24 M3 OT- IP Subjective and Pain Start: 11/18/24 11:41 Freq: Status: Active Protocol: Document 11/22/24 15:50 [facility] (Rec: 11/22/24 16:02 [facility] [id number]) OT- Subjective Occupational Therapy Visit Type Type Treatment Note Visit Start Time 15:20 Visit Stop Time 15:47 Occupational Therapy Visit Comments Patient Comments Pt after encouragement agreed to do SLUMS and get up. Patient/Caregiver Goals TO get better. OT Pain Assessment Pain When Pain Assessed At Rest Pain Present Pain Present Denied Pain M4 OT- IP ADL's Start: 11/18/24 11:41 Freq: Status: Active Protocol: Document 11/22/24 15:50 [facility] (Rec: 11/22/24 16:02 [facility] [id number]) OT [id number] Comments OT Self-Feeding Comments not meal time but of note, pt had not eaten his lunch. OT ADL-Dressing General Eval Upper Body Dressing Ability Moderate Assistance Comments OT Dressing Comments MODA for hospital gown. M5 OT- IP IADL's Start: 11/18/24 11:41 Freq: Status: Active Protocol: Document 11/18/24 11:42 [facility] (Rec: 11/18/24 12:04 [facility] [id number]) OT-Instrumental Activities of Daily Living Deficits IADL Deficits Identified Deficits Home Safety Awareness Awareness of Need for Assistance at Home Decreased Awareness Home Safety Comments Pt insistent of his care and having difficulty with word finding and comprehension at this time. Medication Management Medication Management Comments Pt will need assist. Money Management Money Management Comments Pt will need assist. Meal Preparation Meal Preparation Comments Pt will need assist. Chrome Cleaner Chrome Cleaner Comments Pt will need assist. Driving Driving Concerns Identified Regarding Safety Driving Comments Recommended pt not drive. M6 OT- IP Functional Cognition Start: 11/18/24 11:41 Freq: Status: Active Protocol: Document 11/22/24 15:50 [facility] (Rec: 11/22/24 16:02 [id number] Cognitive Factors Limiting Selfcare Function Cognitive Ability Level of Alertness Alert,Confusional State Patient Orientation Name,Place Attention Span Ability Capable of Focused Attention, Unable to Focus Memory Description Short Term Impaired,Working Impaired Cognitive Tests SLUMS Pt states not able to keep up with the day of the week, thought is was 2024, not able to subtract 100-23, able to recall 4 animals in one minute , able to recall 2/5 objects after time passes, not able to write the numbers of the clock correctly spaced or draw the hour hands correctly after time given, pt able to answer 3/4 questions right after paragraph read. Pt scored implies dementia- Cognitive Comments Cognitive Assessment Comments Pt highly distracted, decreased safety awareness and not able to realize that he was wet and that the bed needing to be changed. Pt tends to joke around to cover his cognitive deficits. Pt admits he is not at his baseline cognitively since his CVA but feel that he could drive. M7 OT- IP Mobility and Balance Start: 11/18/24 11:41 Freq: Status: Active Protocol: Document 11/22/24 15:50 [facility] (Rec: 11/22/24 16:02 [facility] [id number]) OT- Bed Mobility Assessment Supine to Sit Supine to Sit Assist Standby Assistance Scooting Scooting to Edge of Bed Standby Assistance OT-Transfer Assessment Sit to and From Stand Sit to and from Stand Contact Guard Assistance Transfers Transfer Ability Minimal Assistance Technique Transfer Destination Bed,Chair Devices Transfer Assistive Devices None Comments Mobility Comments Trial without device, CGA to stand and needing JOSEFA for the transfer to recliner. Pt having loss of balance to his heels when trying to some OT his dynamic balance on one foot. OT- Balance Assessment Sitting Balance and Reactions Static Sitting Balance Ability Good Dynamic Sitting Balance Ability Good Standing Balance and Reactions Static Standing Balance Ability Fair Dynamic Standing Balance Ability Poor Comments Other Balance Tests/Deviations/Treatment Dynamic balance without a : device. M8 OT- IP Objective Assessments Start: 11/18/24 11:41 Freq: Status: Active Protocol: Document 11/18/24 11:42 [facility] (Rec: 11/18/24 12:04 [facility] [id number]) OT Gross Range of Motion Upper Extremity Range of Motion Assessment Within Functional Limits OT Strength Comments Strength Comments LUE 4/5 and RUE 4-/5 to 4/5 OT- Coordination Assessment Upper Extremity Finger to Nose Test Within Functional Limits Finger Tapping Test Within Functional Limits Comments Coordination Comments Pt having difficulty to follow commands for finger to nose assessment. Right hand 35 sec and left hand 40 second - both scored below 10% for his agre group L hand > R hand. OT Sensation Assessment Comments Summary Comments Intact for light touch. Decreased propriocption for RUE elbow to distal and LUE from wrist to distal. M9 OT- IP Assessment and Plan Start: 11/18/24 11:41 Freq: Status: Active Protocol: Document 11/22/24 15:50 [facility] (Rec: 11/22/24 16:02 [facility] [id number]) OT Summary Assessment and Plan Potential Rehabilitation Potential Good Analytic Complexity at Evaluation Moderate Summary OT Impairments Pain,Strength,Balance, Functional Cognition, Functional Mobility,Self- Feeding,Grooming,Dressing, Toileting,Bathing,Toilet Transfers,Shower Transfers, Activity Tolerance Progress Towards Goals Slow Progress due to Cognition Assessment Summary Pt will greatly benefit from skilled rehab to work on safety awareness, balance, and independence and completeness for his ADL needs. Goals Self-Feeding Goal Independent Grooming Goal Independent Dressing Goal Independent Toileting Goal Independent Bathing Goal Standby Assistance Toilet Transfer Goal Independent Shower Transfer Goal Standby Assistance Days to Meet Goals 15 Frequency of Treatment Other frequency 5x/week Treatment Plan OT Treatment Plan ADL Training,Functional Cognition Training,Functional Mobility,Patient/Family Education,Discharge Planning Discharge Recommendations OT Discharge Recommendations Home with / Assist Available,Home Health,SNF Rehab Transportation Needs at Discharge Private Vehicle,Wheelchair/ Cabulance
--- NOTE | 2024-11-22 15:56 | P.PN_ITS ---
Subjective Subjective Date Patient Seen: 11/22/24 Interval history: He is seen in his room today to follow-up occipital stroke and generalized weakness. Due to insurance issues his long-term facility has not been able to obtain authorization yet so he did not transfer today. Exam Vital Signs (past 8 hours): - 11/22/24 09:07 11/22/24 09:53 11/22/24 13:00 Temperature 97.2 F L 98.6 F Pulse Rate 74 63 61 Respiratory Rate 18 16 Blood Pressure 140/76 132/69 118/61 Pulse Oximetry 98 96 Oxygen Flow Rate 0 Oxygen Delivery Method Room Air Oxygen Flow Rate 0 Narrative Exam Narrative: Alert and oriented x3. Moderate distress from discharge delay anxiety. No visual field cut detected. No left or right-sided neglect. Generalized diffuse weakness affecting balance/ambulation. Heart regular rate and rhythm without murmur Lungs are clear to auscultation bilaterally Extremities have no ankle edema Objective Labs 11/19/24 04:56 11/20/24 05:37 [facility] Social History household members: spouse Smoking Status: Current every day smoker alcohol intake: current Assessment & Plan Assessment & Plan narrative: Acute ischemic Rt CVA, present on admission and active. - Small right Occipital CVA's on MRI - ischemic or embolic possible, though no known afib and NSR EKG on presentation. No events on telemetry to date. - telemetry, ASA, statin. Given hx of ICH, avoided plavix and started on aspirin. - tobacco cessation/nicotine patch - Hx of hemorrhagic stroke 3 years ago, seen in [facility] and transferred to [facility] s/p R owen hole and MMA embolization. - possible left sided neglect versus chronic cognitive changes. - CS MRI revealed moderate to severe stenosis at C3-4 level without myelopathy - Echo normal - ready for discharge, authorization pending. Consider home option with services - not realistic. Waiting for [facility] approval for [facility]. HLD, stable - he was on 40 mg of Lipitor daily, increased to 80. - TG 306, TC 187, LDL 102, HDL 24. - TSH 2.73. HTN, stable - at home on Lisinopril 10 mg daily and amlodipine 10 mg daily - did not take meds last week, according to LBP, stable - chronic - UDS positive for marijuana Rhabdomyolysis, present on admission and resolved. - mild CK elevation >500 on admit, down to 411. CKD - Stable at baseline Tobacco use - Cessation advised Plan: -continue current medical therapy, with monotherapy with aspirin and statin. -continue PT, OT, and speech evaluation. Consider home option with services - not realistic. Waiting for SNF approval for [facility]. Code: Full, surrogate is patient's spouse/(girlfriend) DVT: Lovenox daily PRECIOUS: 11/23 Time-Based Coding :: [TOTAL MINUTES] spent with patient and on the chart (including review of chart, obtaining history, exam, reviewing outside data, placing orders, documenting exam and treatment plan, and counseling patient) on [DATE].
[2024-11-22] MEDS: CODEINE/GUAIFENESIN LIQUID 5ML UDC 10 ML PO (20:45)
[2024-11-22] MEDS: ATORVASTATIN 20 MG TABLET 80 MG PO (20:45)
[2024-11-23] VITALS: BP 120/66; PULSE 74; RESP 19; TEMP 36.4; O2SAT 96
[2024-11-23 04:00] VITALS: BP 126/80; PULSE 84; RESP 19; TEMP 37; O2SAT 97
--- NOTE | 2024-11-23 07:31 | PM.PN.1 ---
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 - Small right Occipital CVA's on MRI - ischemic or embolic possible, though no known afib and NSR EKG on presentation. No events on telemetry to date. - telemetry, ASA, statin. Given hx of ICH, avoided plavix and started on aspirin. - tobacco cessation/nicotine patch - Hx of hemorrhagic stroke 3 years ago, seen in [facility] and transferred to [facility] s/p R owen hole and MMA embolization. - possible left sided neglect versus chronic cognitive changes. - CS MRI revealed moderate to severe stenosis at C3-4 level without myelopathy - Echo normal - ready for discharge, authorization pending. Consider home option with services - not realistic. Waiting for SNF approval for [facility]. HLD, stable - he was on 40 mg of Lipitor daily, increased to 80. - TG 306, TC 187, LDL 102, HDL 24. - TSH 2.73. HTN, stable - at home on Lisinopril 10 mg daily and amlodipine 10 mg daily - did not take meds last week, according to LBP, stable - chronic - UDS positive for marijuana Rhabdomyolysis, present on admission and resolved. - mild CK elevation >500 on admit, down to 411. CKD - Stable at baseline Tobacco use - Cessation advised Plan: -continue current medical therapy, with monotherapy with aspirin and statin. -continue PT, OT, and speech evaluation. Consider home option with services - not realistic. Waiting for SNF approval for [facility]. Code: Full, surrogate is patient's spouse/(girlfriend) DVT: Lovenox daily PRECIOUS: 11/23 Time-Based Coding :: [TOTAL MINUTES] spent with patient and on the chart (including review of chart, obtaining history, exam, reviewing outside data, placing orders, documenting exam and treatment plan, and counseling patient) on [DATE].
[2024-11-23 08:00] VITALS: BP 125/62; PULSE 57; RESP 18; TEMP 35.8; O2SAT 95
[2024-11-23 08:48] VITALS: BP 126/80; PULSE 84
[2024-11-23] MEDS: ENOXAPARIN 40 MG/0.4 ML SYRINGE SUBCUT (08:48)
[2024-11-23] MEDS: AMLODIPINE 5 MG TABLET 10 MG PO (08:48)
[2024-11-23] MEDS: lisinopriL 10 MG TABLET PO (08:48)
[2024-11-23] MEDS: ACETAMINOPHEN 325 MG TABLET 650 MG PO (08:49)
[2024-11-23] MEDS: ASPIRIN EC 81 MG TABLET PO (08:49)
[2024-11-23] MEDS: CODEINE/GUAIFENESIN LIQUID 5ML UDC 10 ML PO (08:49)
[2024-11-23] MEDS: SODIUM CHLORIDE 0.9% FLUSH 10 ML IV (09:00)
--- NOTE | 2024-11-23 11:18 | PM.DS.1 ---
History of Present Illness History of Present Illness Date Patient Seen: 11/23/24 Chief complaint: FELL DOWN AND HAS BRUSE ON BACK. Narrative: 74 y/o with PMH of hemorrhagic stroke, HLD, chronic LBP with impaired balance and gait, smoking, who sustained GLF 2 days ago bruising left flank and left periorbital area. who came with complaining on above. ED workup with NIH stroke scale of 0. MRI showing acute, ischemic, right occipital infarcts. He is borderline hypertensive. Elevated CK and BMP. Cr 1.6. Baseline unknown Pending lipids, A1C, echocardiogram. Telemetry monitoring while in the ED - sinus rhythm. Had ASA, high-intensity statin and IVFs. 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 - Small right Occipital CVA's on MRI - ischemic or embolic possible, though no known afib and NSR EKG on presentation. No events on telemetry to date. - telemetry, ASA, statin. Given hx of ICH, avoided plavix and started on aspirin. - tobacco cessation/nicotine patch - Hx of hemorrhagic stroke 3 years ago, seen in [facility] and transferred to [facility] s/p R owen hole and MMA embolization. - possible chronic cognitive changes. - CS MRI revealed moderate to severe stenosis at C3-4 level without myelopathy - Echo normal - Insurance would not approve SNF level rehab so is discharged to home on PT/OT. HLD, stable HTN, stable LBP, stable Rhabdomyolysis, present on admission and resolved. CKD Tobacco use Hospital Course: He presented with falling and was found to have several small right occipital CVAs of either ischemic or embolic source. He had no history of atrial fibrillation and telemetry did not reveal any arrhythmia. Because of a history of prior hemorrhagic stroke he was started only on aspirin and the Lipitor dose was doubled to 80 mg. He appears to have baseline cognitive deficiencies. We spent several days waiting for insurance approval for [facility] facility rehab which they eventually declined so he was discharged home on home health PT/OT. Status at Discharge Cognitive/behavioral status at discharge: at baseline, confused Functional status at discharge: uses cane/walker Overall status at discharge: patient is progressing back to baseline Exam Vital Signs (past 8 hours): - 11/23/24 04:00 11/23/24 08:00 11/23/24 08:48 Temperature 98.6 F 96.4 F L Pulse Rate 84 57 L 84 Respiratory Rate 19 18 Blood Pressure 126/80 125/62 126/80 Pulse Oximetry 97 95 Oxygen Flow Rate 0 0 Oxygen Delivery Method Room Air Oxygen Flow Rate 0 Narrative Exam Narrative: He is alert and oriented x3. His mental processing is slow and he appears to be guarded or non communicative at times. Heart is irregular today. There is no murmur. Lungs are clear to auscultation bilaterally Extremities have no ankle edema Motor function is 3-4/5 in all extremities. No left-sided hemineglect or visual field deficit noted. He is globally weak and compromised physically. Objective Labs 11/19/24 04:56 11/20/24 05:37 [facility] Social History household members: spouse Smoking Status: Current every day smoker alcohol intake: current Discharge Plan Discharge Plan Patient Disposition: Home Health Service Transfer to: [facility] Provider Discharge Comment: Follow up with PCP in one week Discharge orders & Medications Prescriptions: New atorvastatin 20 mg Tablet 80 mg PO BEDTIME Qty: 30 0RF aspirin 81 mg Tablet,Delayed Release (Dr/Ec) 81 mg PO DAILY Qty: 30 0RF nicotine 21 mg/24 hr Patch 24 Hour 21 mg topical DAILY PRN (Reason: smoker) Qty: 30 0RF Continued amlodipine 10 mg tablet 10 mg PO DAILY lisinopril 10 mg tablet 10 mg PO DAILY Discontinued dexamethasone 4 mg tablet 4 mg PO DAILY atorvastatin 40 mg Tablet 40 mg PO DAILY celecoxib 200 mg Capsule 200 mg PO DAILY Diet/Activity/Treatments Diet: Low-cholesterol Other treatments: Home Health referral for PT and OT Visit Report/Discharge Packet Stand Alone Forms: Patient Portal/API, Stroke Signs & Symptoms
--- NOTE | 2024-11-23 11:24 | CM.DPC ---
DCP Cont. Reviewed EMR and team rounds for status updates. Pt has been medically cleared for home d/c, spoke with pt's DPOA/HC, he is agreeable with plan for home d/c with [facility]. Sent referral. TEST BORER will also email his son, Amaury, info for [facility], the Medicaid LTC application, and [facility] contact information. His SO, Marlon, will plan to transport him home at 1:00pm.
[2024-11-23 12:00] VITALS: BP 116/65; PULSE 56; RESP 17; TEMP 35.8; O2SAT 97
--- NOTE | 2024-11-23 13:30 | OT.IPNOTE ---
Attempted to see pt for OT services x2 today and pt declined. Pt is planned for discharge home today.
--- NOTE | 2024-11-23 14:30 | PC.NURSE ---
Day shift: Discharge information gone over with patient and patient's SO. All questions answered, they both stated understanding. PIV and tele removed prior to d/c. Hard scripts for new medications given to patient. All belongings with patient. PCT Kirstie escorted patient via wheelchair to exit.
== END 2024-11-23 14:32 | disposition home health service (06) | DRG 65 ==
LOC: ED 18:24 → AC 18:25
PROVIDERS: Internal Medicine; Admitting Provider Internal Medicine; Emergency Provider Emergency Medicine; Family Provider Nurse Practitioner; Referring Provider Emergency Medicine; Visit Provider Internal Medicine
DX: I63.89 Other cerebral infarction (principal); M62.82 Rhabdomyolysis; I63.431 Cerebral infarction due to embolism of right posterior cerebral artery; E78.5 Hyperlipidemia, unspecified; I10 Essential (primary) hypertension; G89.29 Other chronic pain; M54.50 Low back pain, unspecified; M48.02 Spinal stenosis, cervical region; R29.700 NIHSS score 0; S30.1XXA Contusion of abdominal wall, initial encounter; S00.12XA Contusion of left eyelid and periocular area, initial encounter; W18.30XA Fall on same level, unspecified, initial encounter; Z86.73 Personal history of transient ischemic attack (TIA), and cerebral infarction without residual deficits; Z74.09 Other reduced mobility; Z98.890 Other specified postprocedural states; Z72.0 Tobacco use; Z91.81 History of falling
CPT/HCPCS: 36415; 70450; 70486; 70551; 71045; 71275; 72125; 72141; 74177; 80053; 80061; 80305; 80320; 82550; 83036; 83605; 83690; 83735; 83880; 84443; 84484; 85025; 85610; 85730; 87797; 93005; 93010; 93306; 96360; 97116; 97129; 97162; 97166; 97530; 97535; 99285; J1650; Q9967